=== PATIENT | male | born 1970 | race Caucasian/White ===

== ENCOUNTER 2021-09-18 11:45 | Inpatient (IN) | payer MEDICAID, OTHER ==
--- NOTE | 2021-09-18 12:14 | ED ---
General Adult HPI - General Chief complaint: Neuro Symptoms/Deficit Stated complaint: confusion, facial drooping Time Seen by Provider: 09/18/21 11:54 Source: patient, EMS, RN notes reviewed Mode of arrival: EMS Limitations: no limitations - History of Present Illness Initial comments: Patient is a pleasant 50-year-old male presenting to the emergency department with concerns for episode of confusion and facial droop. Patient states he woke up this morning and was confused. He states symptoms lasted around an hour and have resolved. Patient feels normal at this time and has no complaints. Patient comes from [place]. Report states patient did have some confusion yesterday that resolved and then again today. Patient also reportedly had a facial droop. Patient is unaware of any facial droop or problems with his face. Patient denies any extremity weakness. Patient denies any confusion at this time. Patient denies any history of previous arrhythmia or heart problems. Patient is at [facility] for benzodiazepine problems. - Related Data Home Medications Medication Instructions Recorded Confirmed Acetaminophen [Tylenol 8 Hour] 650 mg PO Q4H PRN MDD 3 TAB/24 HR 09/18/21 09/18/21 Calc/Mag/Zinc/Janny D 1 tab PO TID PRN 09/18/21 09/18/21 Chlorpheniramine Maleate 4 mg PO Q4H PRN 09/18/21 09/18/21 [Chlor-Trimeton] Digoxin 250 mcg PO DAILY 09/18/21 09/18/21 Folic Acid 0.4 mg PO DAILY 09/18/21 09/18/21 Furosemide [Lasix] 40 mg PO DAILY 09/18/21 09/18/21 Hyoscyamine Sulfate [Levsin] 0.125 mg PO QID PRN 09/18/21 09/18/21 Ibuprofen [Motrin Ib] 600 mg PO Q6H PRN 09/18/21 09/18/21 Loperamide HCl [Imodium A-D] 4 mg PO QID PRN MDD 8 TAB/24 HRS 09/18/21 09/18/21 Losartan Potassium [Cozaar] 25 mg PO DAILY 09/18/21 09/18/21 Mag Hydrox/Aluminum Hyd/Simeth 30 ml PO Q4H PRN 09/18/21 09/18/21 [Mylanta Maximum Strength Liq] Metoprolol Tartrate [Lopressor] 75 mg PO TID 09/18/21 09/18/21 Spironolactone 100 mg PO DAILY 09/18/21 09/18/21 Therabasic M 1 tab PO DAILY 09/18/21 09/18/21 Thiamine HCl [Vitamin B-1] 100 mg PO DAILY 09/18/21 09/18/21 cloNIDine HCL 0.1 mg PO BID 09/18/21 09/18/21 ondansetron HCL [Zofran] 8 mg PO Q6H PRN 09/18/21 09/18/21 traZODone HCL [Desyrel] 50 - 150 mg PO HS PRN 09/18/21 09/18/21 Allergies Allergy/AdvReac Type Severity Reaction Status Date / Time No Known Allergies Allergy Verified 09/18/21 13:07 Review of Systems ROS Statement: Those systems with pertinent positive or pertinent negative responses have been documented in the HPI. ROS Other: All systems not noted in ROS Statement are negative. Constitutional: Denies: fever Eyes: Denies: eye pain ENT: Denies: ear pain Respiratory: Denies: cough Cardiovascular: Denies: chest pain Endocrine: Denies: fatigue Gastrointestinal: Denies: abdominal pain Genitourinary: Denies: dysuria Musculoskeletal: Denies: back pain Skin: Denies: rash Neurological: Reports: as per HPI, weakness, confusion. Denies: headache Past Medical History Past Medical History: No Reported History Additional Past Medical History / Comment(s): Patient denies any pain issues. History of Any Multi-Drug Resistant Organisms: None Reported Past Surgical History: Orthopedic Surgery Additional Past Surgical History / Comment(s): finger repair Past Anesthesia/Blood Transfusion Reactions: No Reported Reaction Additional Past Anesthesia/Blood Transfusion Reaction / Comment(s): Patient denies. Past Psychological History: No Psychological Hx Reported Past Alcohol Use History: None Reported Past Drug Use History: Cocaine, Opiates, Prescription Drug Abuse General Exam Limitations: no limitations General appearance: alert, in no apparent distress Head exam: Present: normocephalic Eye exam: Present: normal appearance, PERRL, EOMI. Absent: nystagmus ENT exam: Present: normal oropharynx Neck exam: Present: normal inspection Respiratory exam: Present: normal lung sounds bilaterally Cardiovascular Exam: Present: irregular rhythm GI/Abdominal exam: Present: soft. Absent: tenderness Extremities exam: Present: normal inspection Neurological exam: Present: alert, oriented X3, CN II-XII intact. Absent: motor sensory deficit Expanded Neurological exam: Present: protecting the airway Patient oriented to: Present: person, place, time Speech: Present: fluid speech Cranial nerves: EOM's Intact: Normal, Facial Sensation: Normal Sensory exam: Upper Extremity Light Touch: Normal, Lower Extremity Light Touch: Normal Motor strength exam: RUE: 5, LUE: 5, RLE: 5, LLE: 5 Eye Response: (4) open spontaneously Motor Response: (6) obeys commands Verbal Response: (5) oriented Psychiatric exam: Present: normal affect, normal mood Skin exam: Present: normal color Course Vital Signs 09/18/21 09/18/21 11:51 13:08 Temperature 98.4 F Pulse Rate 78 103 H Respiratory 18 18 Rate Blood Pressure 189/128 182/115 O2 Sat by Pulse 99 98 Oximetry - Reevaluation(s) Reevaluation #1: 09/18/21 13:26 Heparin will be held at this time pending cardiology evaluation secondary to INR 1.5 and low platelet count. EKG Findings - EKG Comments: EKG Findings:: A. fib with rate of 87. QRS 96. QT 404. QTC 486. Normal axis. Normal QRS. T wave inversion diffusely. Medical Decision Making - Medical Decision Making Patient reevaluated and updated. [facility] physician group has been paged for admission covering for hospital call. - Lab Data Result diagrams: 09/18/21 12:07 09/18/21 12:07 Lab Results 09/18/21 09/18/21 09/18/21 Range/Units 12:07 12:07 12:07 WBC 4.0 (3.8-10.6) k/uL RBC 5.58 (4.30-5.90) m/uL Hgb 17.5 (13.0-17.5) gm/dL Hct 51.1 (39.0-53.0) % MCV 91.5 (80.0-100.0) fL MCH 31.3 (25.0-35.0) pg MCHC 34.2 (31.0-37.0) g/dL RDW 14.2 (11.5-15.5) % Plt Count 89 L (150-450) k/uL MPV 8.7 Neutrophils % 74 % Lymphocytes % 15 % Monocytes % 9 % Eosinophils % 0 % Basophils % 0 % Neutrophils # 3.0 (1.3-7.7) k/uL Lymphocytes # 0.6 L (1.0-4.8) k/uL Monocytes # 0.4 (0-1.0) k/uL Eosinophils # 0.0 (0-0.7) k/uL Basophils # 0.0 (0-0.2) k/uL Manual Slide Review Performed RBC Morphology Normal PT 15.3 H (9.0-12.0) sec INR 1.5 H (<1.2) APTT 32.8 H (22.0-30.0) sec Sodium 136 L (137-145) mmol/L Potassium 3.9 (3.5-5.1) mmol/L Chloride 102 (98-107) mmol/L Carbon Dioxide 21 L (22-30) mmol/L Anion Gap 13 mmol/L BUN 24 H (9-20) mg/dL Creatinine 0.71 (0.66-1.25) mg/dL Est GFR (CKD-EPI)AfAm >90 (>60 ml/min/1.73 sqM) Est GFR (CKD-EPI)NonAf >90 (>60 ml/min/1.73 sqM) Glucose 147 H (74-99) mg/dL Calcium 9.0 (8.4-10.2) mg/dL Total Bilirubin 1.9 H (0.2-1.3) mg/dL AST 68 H (17-59) U/L ALT 29 (4-49) U/L Alkaline Phosphatase 79 (38-126) U/L Troponin I (0.000-0.034) ng/mL Total Protein 7.8 (6.3-8.2) g/dL Albumin 4.3 (3.5-5.0) g/dL 09/18/21 Range/Units 12:07 WBC (3.8-10.6) k/uL RBC (4.30-5.90) m/uL Hgb (13.0-17.5) gm/dL Hct (39.0-53.0) % MCV (80.0-100.0) fL MCH (25.0-35.0) pg MCHC (31.0-37.0) g/dL RDW (11.5-15.5) % Plt Count (150-450) k/uL MPV Neutrophils % % Lymphocytes % % Monocytes % % Eosinophils % % Basophils % % Neutrophils # (1.3-7.7) k/uL Lymphocytes # (1.0-4.8) k/uL Monocytes # (0-1.0) k/uL Eosinophils # (0-0.7) k/uL Basophils # (0-0.2) k/uL Manual Slide Review RBC Morphology PT (9.0-12.0) sec INR (<1.2) APTT (22.0-30.0) sec Sodium (137-145) mmol/L Potassium (3.5-5.1) mmol/L Chloride (98-107) mmol/L Carbon Dioxide (22-30) mmol/L Anion Gap mmol/L BUN (9-20) mg/dL Creatinine (0.66-1.25) mg/dL Est GFR (CKD-EPI)AfAm (>60 ml/min/1.73 sqM) Est GFR (CKD-EPI)NonAf (>60 ml/min/1.73 sqM) Glucose (74-99) mg/dL Calcium (8.4-10.2) mg/dL Total Bilirubin (0.2-1.3) mg/dL AST (17-59) U/L ALT (4-49) U/L Alkaline Phosphatase (38-126) U/L Troponin I 0.015 (0.000-0.034) ng/mL Total Protein (6.3-8.2) g/dL Albumin (3.5-5.0) g/dL - Radiology Data Radiology results: report reviewed (CT and CT of the brain shows no acute process), image reviewed (Chest x-ray shows no acute process) Disposition Clinical Impression: Transient cerebral ischemia, New onset a-fib Disposition: ADMITTED IP TO THIS [facility] Condition: Serious Is patient prescribed a controlled substance at d/c from ED?: No Referrals: None,Stated [Primary Care Provider] - 1-2 days Decision Time: 13:26
[2021-09-18 12:19] LABS: Basophils % (A) 0 %; Eosinophils % (A) 0 %; HCT 51.1 % (39.0-53.0); HGB 17.5 gm/dL (13.0-17.5); Lymphocytes # (A) 0.6 k/uL (1.0-4.8); Lymphocytes % (A) 15 %; MCH 31.3 pg (25.0-35.0); MCHC 34.2 g/dL (31.0-37.0); MCV 91.5 fL (80.0-100.0); Mean Platelet Volume 8.7; Monocytes # (A) 0.4 k/uL (0-1.0); Monocytes % (A) 9 %; Neutrophils % (A) 74 %; RBC 5.58 m/uL (4.30-5.90); RDW 14.2 % (11.5-15.5)
[2021-09-18 12:24] LABS: INR 1.5 (<1.2); Partial Thromboplastin Time 32.8 sec (22.0-30.0); Prothrombin Time 15.3 sec (9.0-12.0)
[2021-09-18 12:25] LABS: ALT 29 U/L (4-49); AST 68 U/L (17-59); African American GFR (CKD) >90 (>60 ml/min/1.73 sqM); Albumin 4.3 g/dL (3.5-5.0); Alkaline Phosphatase 79 U/L (38-126); Anion Gap 13 mmol/L; Blood Urea Nitrogen 24 mg/dL (9-20); Carbon Dioxide 21 mmol/L (22-30); Chloride 102 mmol/L (98-107); Glucose 147 mg/dL (74-99); Non-African American GFR(CKD) >90 (>60 ml/min/1.73 sqM); Sodium 136 mmol/L (137-145); Total Bilirubin 1.9 mg/dL (0.2-1.3); Total Protein 7.8 g/dL (6.3-8.2)
[2021-09-18 12:26] LABS: Potassium 3.9 mmol/L (3.5-5.1)
--- NOTE | 2021-09-18 12:30 | CT ---
EXAMINATION TYPE: CT brain wo con DATE OF EXAM: 09/18/2021 HISTORY: Confusion. CT DLP: 1094.8 mGycm. Automated Exposure Control for Dose Reduction was Utilized. TECHNIQUE: CT scan of the head is performed without contrast. COMPARISON: None. FINDINGS: There is no acute intracranial hemorrhage or midline shift identified. There is mild to m oderate diffuse ventricular and slightly more prominent sulcal prominence consistent with diffuse cer ebral atrophy greatest over the bilateral high frontal and parietal lobes. Hawley-white matter differen tiation fairly well maintained. Old fracture deformities medial wall of the bilateral orbits. Paranas al sinuses are grossly clear. IMPRESSION: No acute intracranial hemorrhage or midline shift.
--- NOTE | 2021-09-18 12:31 | XR ---
EXAMINATION TYPE: XR chest 2V DATE OF EXAM: 09/18/2021 COMPARISON: NONE HISTORY: Altered mental status and weakness. TECHNIQUE: Frontal and lateral views of the chest are obtained. FINDINGS: Patient rotated to the right. There is no focal air space opacity, pleural effusion, or pne umothorax seen. The cardiac silhouette size is mildly enlarged. The osseous structures are intact. Overlying EKG leads are present. IMPRESSION: Mild cardiomegaly without acute pulmonary process.
[2021-09-18 12:38] LABS: Platelet Count 89 k/uL (150-450)
--- NOTE | 2021-09-18 12:47 | CT ---
EXAMINATION TYPE: CT angio head neck DATE OF EXAM: 09/18/2021 HISTORY: Confusion. Acute onset neuro deficit. COMPARISON: None. CT DLP: 487.1 mGycm. Automated Exposure Control for Dose Reduction was Utilized. TECHNIQUE: CTA scan of the neck is performed with IV Contrast, patient injected with 65 mL of Isovue 370, axial images are obtained, coronal and sagittal reformatted images are reviewed. 3D reconstruct ed images are created on an independent workstation and reviewed. FINDINGS: Carotid/Vascular Structures: No significant plaque or stenosis in the aortic arch or great vessels. N ormal origin right common carotid artery from the right brachiocephalic artery. No significant plaque or stenosis in the common or internal carotid arteries bilaterally including at level of the bilater al carotid bulbs. Patent external carotid arteries bilaterally without significant plaque or stenosis . Codominant vertebral arteries filling the basilar artery are identified. There is no significant foca l stenosis or aneurysm in the posterior circulation. There is patent right posterior communicating ar danika. There is hypoplastic left posterior communicating artery. There is patent anterior communicating artery. There is no significant focal stenosis or aneurysm in the anterior circulation. Other: No significant abnormality. IMPRESSION: No significant abnormality is seen. NASCET criteria was used in interpretation of this exam?
[2021-09-18] MEDS ORDERED: ASPIRIN 325 MG TAB PO STA (13:26)
[2021-09-18 13:40] LABS: Appearance,Urine Clear (Clear); Bilirubin,Urine Negative (Negative); Blood,Urine Negative (Negative); Color,Urine Yellow; Glucose,Urine (UA) Negative (Negative); Ketones,Urine Negative (Negative); Leukocyte Esterase,Urine Negative (Negative); Mucus,Urine Rare /hpf; Nitrite,Urine Negative (Negative); Protein,Urine 1+ (Negative); RBC,Urine 1 /hpf (0-5); Squamous Epithelial Cell,Urine <1 /hpf (0-4); Urobilinogen,Urine <2.0 mg/dL (<2.0); WBC,Urine 1 /hpf (0-5)
[2021-09-18 13:43] LABS: Specific Gravity,Urine >1.050 (1.001-1.035)
[2021-09-18] MEDS ORDERED: LORazepam 2 MG/ML INJ IV STA (13:54)
[2021-09-18] MEDS ORDERED: ONDANSETRON 4 MG TAB PO PRN (14:31)
[2021-09-18] MEDS ORDERED: IBUPROFEN 600 MG TAB PO PRN (14:31)
[2021-09-18] MEDS ORDERED: traZODone HCL 50 MG TAB PO PRN (14:31)
[2021-09-18] MEDS ORDERED: MAG HYDROX/AL HYDROX/SIMETH 30 ML CUP PO PRN (14:31)
[2021-09-18] MEDS ORDERED: diphenhydrAMINE 25 MG CAP PO PRN (14:31)
[2021-09-18] MEDS ORDERED: ACETAMINOPHEN TAB 325 MG TAB PO PRN (14:31)
[2021-09-18] MEDS ORDERED: HALOPERIDOL LACTATE 5 MG/ML 1 ML VIAL IVP PRN (14:33)
--- NOTE | 2021-09-18 14:35 | P.HPIM ---
History of Present Illness H&P Date: 09/18/21 Chief Complaint: TIA 50-year-old male presenting to the emergency department from [place] with concerns for episode of confusion and facial droop. Patient states he woke up this morning and was confused. According to [place] staff he had some facial drooping. He is still confused and agitated at the time of my evaluation. Earlier he stated that he was feeling normal and had no complaints. However when I saw him he was having some hallucinations and delusions, was agitated. Did not cooperate with the history or the exam. Vital signs in the emergency department revealed hypertension with blood pressure 185/115, tachycardia with heart rate of 120 to 130. Rest of the vitals were okay. Chest x-ray showed cardiomegaly. EKG showed atrial fibrillation with rapid ventricular response. Head CT scan and CT angiogram of the head and neck were both unremarkable. Review of Systems Unobtainable secondary to current mental status Past Medical History Past Medical History: No Reported History Additional Past Medical History / Comment(s): Patient denies any pain issues. History of Any Multi-Drug Resistant Organisms: None Reported Past Surgical History: Orthopedic Surgery Additional Past Surgical History / Comment(s): finger repair Past Anesthesia/Blood Transfusion Reactions: No Reported Reaction Additional Past Anesthesia/Blood Transfusion Reaction / Comment(s): Patient denies. Past Psychological History: No Psychological Hx Reported Past Alcohol Use History: None Reported Past Drug Use History: Cocaine, Opiates, Prescription Drug Abuse Medications and Allergies Home Medications Medication Instructions Recorded Confirmed Type Acetaminophen [Tylenol 8 Hour] 650 mg PO Q4H PRN MDD 3 TAB/24 HR 09/18/2105/02 History Calc/Mag/Zinc/Janny D 1 tab PO TID PRN 09/18/21 09/18/21 History Chlorpheniramine Maleate 4 mg PO Q4H PRN 09/18/21 09/18/21 History [Chlor-Trimeton] Digoxin 250 mcg PO DAILY 09/18/21 09/18/21 History Folic Acid 0.4 mg PO DAILY 09/18/21 09/18/21 History Furosemide [Lasix] 40 mg PO DAILY 09/18/21 09/18/21 History Hyoscyamine Sulfate [Levsin] 0.125 mg PO QID PRN 09/18/21 09/18/21 History Ibuprofen [Motrin Ib] 600 mg PO Q6H PRN 09/18/21 09/18/21 History Loperamide HCl [Imodium A-D] 4 mg PO QID PRN MDD 8 TAB/24 HRS 09/18/21 09/18/21 History Losartan Potassium [Cozaar] 25 mg PO DAILY 09/18/21 09/18/21 History Mag Hydrox/Aluminum Hyd/Simeth 30 ml PO Q4H PRN 09/18/21 09/18/21 History [Mylanta Maximum Strength Liq] Metoprolol Tartrate [Lopressor] 75 mg PO TID 09/18/21 09/18/21 History Spironolactone 100 mg PO DAILY 09/18/21 09/18/21 History Therabasic M 1 tab PO DAILY 09/18/21 09/18/21 History Thiamine HCl [Vitamin B-1] 100 mg PO DAILY 09/18/21 09/18/21 History cloNIDine HCL 0.1 mg PO BID 09/18/21 09/18/21 History ondansetron HCL [Zofran] 8 mg PO Q6H PRN 09/18/21 09/18/21 History traZODone HCL [Desyrel] 50 - 150 mg PO HS PRN 09/18/21 09/18/21 History Allergies Allergy/AdvReac Type Severity Reaction Status Date / Time No Known Allergies Allergy Verified 09/18/21 13:07 Physical Exam Vitals: Vital Signs Temp Pulse Resp BP Pulse Ox 09/18/21 13:08 103 H 18 182/115 98 09/18/21 11:51 98.4 F 78 18 189/128 99 Intake and Output 09/17/21 09/18/21 09/18/21 22:59 06:59 14:59 Other: Weight 117.934 kg Constitutional: No acute distress Eyes:Anicteric sclerae, moist conjunctiva, no lid-lag, PERRLA, ENMT: Oropharynx clear, no erythema, exudates Neck: Supple, FROM, no masses, or JVD, No carotid bruits, No thyromegaly Lungs: Clear to auscultation, Clear to percussion, Normal respiratory effort, no accessory muscle use Cardiovascular: tachy, irregular. No murmurs, gallops, or rubs, No peripheral edema Abdominal: Soft, Nontender, no guarding, rebound or rigidity, Normoactive bowel sounds, No hepatomegaly, No splenomegaly, No palpable mass Skin: Normal temperature, tone, texture, turgor, no induration, No subcutaneous nodules, No rash, lesions, No ulcers Extremities: No digital cyanosis, No clubbing, Pedal pulses intact and symmetrical, Radial pulses intact and symmetrical, No calf tenderness Psychiatric: Alert and oriented time zero, flat affect, impaired judgement Neuro: moving all extremities, agitated Results CBC & Chem 7: 09/18/21 12:07 09/18/21 12:07 Labs: Abnormal Lab Results - Last 24 Hours (Table) 09/18/21 09/18/21 09/18/21 Range/Units 12:07 12:07 12:07 Plt Count 89 L (150-450) k/uL Lymphocytes # 0.6 L (1.0-4.8) k/uL PT 15.3 H (9.0-12.0) sec INR 1.5 H (<1.2) APTT 32.8 H (22.0-30.0) sec Sodium 136 L (137-145) mmol/L Carbon Dioxide 21 L (22-30) mmol/L BUN 24 H (9-20) mg/dL Glucose 147 H (74-99) mg/dL Total Bilirubin 1.9 H (0.2-1.3) mg/dL AST 68 H (17-59) U/L Ur Specific [place] (1.001-1.035) Urine Protein (Negative) Urine Mucus (None) /hpf Coronavirus (PCR) (Not Detectd) 09/18/21 09/18/21 Range/Units 13:16 13:47 Plt Count (150-450) k/uL Lymphocytes # (1.0-4.8) k/uL PT (9.0-12.0) sec INR (<1.2) APTT (22.0-30.0) sec Sodium (137-145) mmol/L Carbon Dioxide (22-30) mmol/L BUN (9-20) mg/dL Glucose (74-99) mg/dL Total Bilirubin (0.2-1.3) mg/dL AST (17-59) U/L Ur Specific [place] >1.050 H (1.001-1.035) Urine Protein 1+ H (Negative) Urine Mucus Rare H (None) /hpf Coronavirus (PCR) Detected A (Not Detectd) Assessment and Plan Plan: TIA Consult neurology for further workup. CT head and CT angiogram of the head and neck reviewed, both negative Atrial fibrillation with rapid ventricular response Consult cardiology We will initiate Cardizem drip if heart rate above 100 Anticoagulation per cardiology Delusions and hallucinations. Consult psychiatry Resume his psych medications Halodol prn for agitation HTN Continue losrtan, metoprolol and clonidine. Admit to inpatient, expected length of stay more than 2 midnights
[2021-09-18] MEDS: DILTIAZEM 125 MG in SODIUM CHLORIDE 0.9% 100 ML IV SCH (15:35)
[2021-09-18 17:06] LABS: Amphetamine Screen,Urine Not Detected (NotDetected); Barbiturate Screen,Urine Detected (NotDetected); Benzodiazepines Screen,Urine Detected (NotDetected); Cocaine Screen,Urine Not Detected (NotDetected); Methadone Screen, Urine Detected (NotDetected); Opiate Screen,Urine Not Detected (NotDetected); Oxycodone Screen, Urine Not Detected (NotDetected); Phencyclidine Screen,Urine Not Detected (NotDetected); Tricyclic Antidepressant,Urine Not Detected (NotDetected); Urn Cannabinoid Scrn Not Detected (NotDetected)
[2021-09-18] MEDS: SODIUM CHLORIDE 0.9% 1,000 ML IV SCH (18:59)
[2021-09-18] MEDS: METOPROLOL TARTRATE 50 MG TAB PO SCH ×2 (19:01→21:57)
[2021-09-18] MEDS: cloNIDine HCL 0.1 MG TAB PO SCH (19:01)
[2021-09-19 00:03] LABS: Urine Alcohol Negative (Negative); Urine Barbiturate Positive (Negative); Urine Cocaine Negative (Negative); Urine Methadone Positive (Negative); Urine Opiates Negative (Negative); Urine Phencyclidine Negative (Negative)
[2021-09-19] MEDS: SODIUM CHLORIDE 0.9% 1,000 ML IV SCH ×2 (00:31→09:26)
[2021-09-19] MEDS: DILTIAZEM 125 MG in SODIUM CHLORIDE 0.9% 100 ML IV SCH (06:13)
[2021-09-19] MEDS: SPIRONOLACTONE 25 MG TAB PO SCH (09:23)
[2021-09-19] MEDS: ASPIRIN 325 MG TAB PO SCH (09:23)
[2021-09-19] MEDS: LOSARTAN 25 MG TAB PO SCH (09:23)
[2021-09-19] MEDS: cloNIDine HCL 0.1 MG TAB PO SCH ×2 (09:23→17:56)
[2021-09-19] MEDS: FUROSEMIDE 40 MG TAB PO SCH (09:23)
[2021-09-19] MEDS: METOPROLOL TARTRATE 50 MG TAB PO SCH ×3 (09:23→21:34)
[2021-09-19] MEDS: DIGOXIN 250 MCG TAB PO SCH (09:24)
--- NOTE | 2021-09-19 10:53 | P.CN ---
Psychiatric Consult - . Consult date: 09/19/21 Consult:: 09/19/21 10:44 Psychiatric evaluation: This is a psychiatric assessment on Delfino Harper who is a 50-year-old male and was requested for a evaluation for mental status changes Patient is a very poor historian and seemed to be very defensive and projective and delusional Patient was very guarded Patient was unable to give me the reasons for him being in the hospital Patient also stated that this might be a conspiracy against him by some of his friends Patient did not report any issues as mentioned in the H&P where he had initially presented with episodes of confusion and facial droop Patient currently denies that he has any history of any mental illness or substance use Although there is documentation of past drug use of cocaine and opiates and prescription drug use Patient also seemed to have significant difficulty with concentration and attention span Patient also has problems with easy irritability and temperament Past history personal and social history: The patient continues to have difficulty with concentration and attention span Patient seems to pick on words among the questions asked and seemed to get easily irritated He was able to report that he is a hassan and he lives alone Patient also feels that this is a conspiracy by some of his friends but would not elaborate when asked about his friends patient got extremely irritated wondering what I was asking and had no idea what he had responded earlier Mental status examination: Reveals a middle-aged male who appears confused and perplexed Patient's affect is that of irritability with easy escalation of temperament Patient's insight into his problem is poor Unable to assess if patient has any auditory or visual hallucinations Patient's formal and operational judgment are impaired Problem-solving abilities impaired Judgment is poor Diagnostic impression: Psychotic disorder unspecified Rule out major neurocognitive disorder/delirium Rule out substance related? Plan: Would recommend starting the patient on a small dose of antipsychotic in addition to the when necessary medications Would recommend starting him on Haldol 1 mg twice a day and to be titrated to response if there are no side effects We'll follow this patient along with you Thank you very much for allowing me to see this patient and please feel free to contact me if there are any further questions Joseph Rose M.D. 09/19/2021
--- NOTE | 2021-09-19 10:58 | P.CRDCN ---
History of Present Illness Consult date: 09/19/21 Consult reason: atrial fibrillation History of present illness: HISTORY OF PRESENT ILLNESS This is a 50-year-old male with past medical history of hypertension. Patient denies having any cardiac history, A. fib, heart failure. [facility]. Patient was having episodes of confusion and facial droop. Patient denies symptoms of confusion and facial droop. He does not know why he is at the hospital. Patient just states don't remember to questions, sophie judd historian. EKG atrial fibrillation at a heart rate of 87. jacquard card cutter is atrial fibrillation running in the 60s and 70s. Laboratory studies: Platelet count 89, INR 1.5. Sodium 136, potassium 3.9, CO2 21, BUN 24 creatinine 0.71. Blood sugar 147. Total bilirubin 1.9, AST 68. Urinalysis was clear with nitrate and leukoesterase negative, 1+ protein. Urine drug screen was positive for methadone, barbiturates and repeat drug screen was positive for benzodiazepines. Carona virus PCR detected. CT angiogram of the head and neck revealed no significant abnormality. CAT scan of the brain revealed no acute intracranial hemorrhage or midline shift. Chest x-ray reveals mild cardiomegaly without acute pulmonary process. Home cardiac medications: Clonidine 0.1 mg twice daily, digoxin 250 g daily, Lasix 40 mg daily, losartan 25 mg daily, Lopressor 75 mg 3 times daily, spironolactone 100 mg daily REVIEW OF SYSTEMS Constitutional: No fever, no chills. No weakness, fatigue or lethargy. EENT: No headache. No dizziness. Lungs: No shortness of breath, cough, no sputum production. No wheezing. Cardiovascular: No chest pain, no lower extremity edema. No palpitations. No paroxysmal nocturnal dyspnea. No orthopnea. No lightheadedness or dizziness. No syncopal episodes. Abdominal: No abdominal pain. No nausea, vomiting. No diarrhea. No constipation. No bloody or tarry stools.. No loss of appetite. Genitourinary: No dysuria.. No urinary retention. Musculoskeletal: No myalgias. No muscle weakness, no gait dysfunction, no frequent falls. No back pain. No neck pain. Integumentary: No wounds, no lesions. No rash or pruritus. No unusual bruising. Neurologic: No aphasia. No facial droop. No change in mentation. No head injury. No headache. No paralysis. No paresthesia. Psychiatric: No depression. No anxiety. Endocrine: No abnormal blood sugars. PHYSICAL EXAMINATION Gen: This is a 50-year-old male patient, resting in bed and appears to be comfortable and in no acute distress. VS: Afebrile, heart rate 94, blood pressure 179/108, pulse ox 98% on room air Full physical examination deferred due to Covid 19 isolation ASSESSMENT Atrial fibrillation, mild RVR, currently rate controlled Possible new onset of paroxysmal atrial fibrillation. However patient may have history of A. fib and cardiomyopathy based on medications. Episodes of confusion and facial droop Thrombocytopenia Hypertension Benzodiazepine substance abuse PLAN Continue patient's home cardiac medications Neurology workup per her neurologist If patient is thought to have CVA, recommend anticoagulation Obtain 2-D echocardiogram and Doppler study to assess cardiac structure and fu nction Further recommendations to follow based upon clinical course Thank you kindly for this consultation. Nurse practitioner note has been reviewed, I agree with documented findings and plan of care. Patient was seen and examined. Past Medical History Past Medical History: No Reported History Additional Past Medical History / Comment(s): Patient denies any pain issues. History of Any Multi-Drug Resistant Organisms: None Reported Past Surgical History: Orthopedic Surgery Additional Past Surgical History / Comment(s): finger repair Past Anesthesia/Blood Transfusion Reactions: No Reported Reaction Additional Past Anesthesia/Blood Transfusion Reaction / Comment(s): Patient denies. Past Psychological History: No Psychological Hx Reported Additional Psychological History / Comment(s): Patient currently receiving substatnce abuse treatmrent at [place]. Smoking Status: Unknown if ever smoked Past Alcohol Use History: None Reported Additional Past Alcohol Use History / Comment(s): Denies. Past Drug Use History: Cocaine, Opiates, Prescription Drug Abuse Medications and Allergies Home Medications Medication Instructions Recorded Confirmed Type Acetaminophen [Tylenol 8 Hour] 650 mg PO Q4H PRN MDD 3 TAB/24 HR 09/18/21 09/18/21 History Calc/Mag/Zinc/Janny D 1 tab PO TID PRN 09/18/21 09/18/21 History Chlorpheniramine Maleate 4 mg PO Q4H PRN 09/18/21 09/18/21 History [Chlor-Trimeton] Digoxin 250 mcg PO DAILY 09/18/21 09/18/21 History Folic Acid 0.4 mg PO DAILY 09/18/21 09/18/21 History Furosemide [Lasix] 40 mg PO DAILY 09/18/21 09/18/21 History Hyoscyamine Sulfate [Levsin] 0.125 mg PO QID PRN 09/18/21 09/18/21 History Ibuprofen [Motrin Ib] 600 mg PO Q6H PRN 09/18/21 09/18/21 History Loperamide HCl [Imodium A-D] 4 mg PO QID PRN MDD 8 TAB/24 HRS 09/18/21 09/18/21 History Losartan Potassium [Cozaar] 25 mg PO DAILY 09/18/21 09/18/21 History Mag Hydrox/Aluminum Hyd/Simeth 30 ml PO Q4H PRN 09/18/21 09/18/21 History [Mylanta Maximum Strength Liq] Metoprolol Tartrate [Lopressor] 75 mg PO TID 09/18/21 09/18/21 History Spironolactone 100 mg PO DAILY 09/18/21 09/18/21 History Therabasic M 1 tab PO DAILY 09/18/21 09/18/21 History Thiamine HCl [Vitamin B-1] 100 mg PO DAILY 09/18/21 09/18/21 History cloNIDine HCL 0.1 mg PO BID 09/18/21 09/18/21 History ondansetron HCL [Zofran] 8 mg PO Q6H PRN 09/18/21 09/18/21 History traZODone HCL [Desyrel] 50 - 150 mg PO HS PRN 09/18/21 09/18/21 History Allergies Allergy/AdvReac Type Severity Reaction Status Date / Time No Known Allergies Allergy Verified 09/18/21 13:07 Physical Exam Vitals: Vital Signs Temp Pulse Pulse Resp BP BP Pulse Ox 09/19/21 04:28 98.9 F 67 18 167/97 98 09/19/21 04:00 98.9 F 67 18 167/97 98 09/19/21 02:00 65 18 09/19/21 00:00 98.5 F 65 18 165/99 99 09/18/21 22:28 98.5 F 65 18 165/99 97 09/18/21 20:28 99.3 F 62 18 173/102 97 09/18/21 20:00 99.3 F 62 18 173/102 97 09/18/21 18:46 97.6 F 116 H 18 217/124 96 09/18/21 16:32 183/126 09/18/21 15:00 104 H 16 194/149 09/18/21 14:40 108 H 20 194/149 09/18/21 14:20 134 H 19 09/18/21 14:00 83 30 H 09/18/21 13:40 100 24 191/130 09/18/21 13:20 182/115 09/18/21 13:08 103 H 18 182/115 98 09/18/21 13:00 120 H 21 179/161 09/18/21 12:40 116 H 21 194/122 99 09/18/21 12:20 191/141 09/18/21 12:00 76 29 H 189/128 09/18/21 11:51 98.4 F 78 18 189/128 99 09/18/21 11:50 85 18 Intake and Output 09/18/21 09/19/21 09/19/21 22:59 06:59 14:59 Intake Total 400 975 Balance 400 975 Intake: IV 10 Invasive Line 1 10 Intake, IV Titration 330 875 Amount Diltiazem 125 mg In 30 125 Sodium Chloride 0.9% 100 ml @ 10 MG/HR 10 mls/hr IV .[id number] DAVIN Rx#: [id number] Sodium Chloride 0.9% 1, 300 750 000 ml @ 100 mls/hr IV . Q10H DAVIN Rx#:[id number] Oral 60 100 Other: # Voids 1 4 Weight 117.934 kg Results 09/18/21 12:07 09/18/21 12:07 Cardiac Enzymes 09/18/21 09/18/21 Range/Units 12:07 12:07 AST 68 H (17-59) U/L Troponin I 0.015 (0.000-0.034) ng/mL Coagulation 09/18/21 Range/Units 12:07 PT 15.3 H (9.0-12.0) sec APTT 32.8 H (22.0-30.0) sec CBC 09/18/21 Range/Units 12:07 WBC 4.0 (3.8-10.6) k/uL RBC 5.58 (4.30-5.90) m/uL Hgb 17.5 (13.0-17.5) gm/dL Hct 51.1 (39.0-53.0) % Plt Count 89 L (150-450) k/uL Comprehensive Metabolic Panel 09/18/21 Range/Units 12:07 Sodium 136 L (137-145) mmol/L Potassium 3.9 (3.5-5.1) mmol/L Chloride 102 (98-107) mmol/L Carbon Dioxide 21 L (22-30) mmol/L BUN 24 H (9-20) mg/dL Creatinine 0.71 (0.66-1.25) mg/dL Glucose 147 H (74-99) mg/dL Calcium 9.0 (8.4-10.2) mg/dL AST 68 H (17-59) U/L ALT 29 (4-49) U/L Alkaline Phosphatase 79 (38-126) U/L Total Protein 7.8 (6.3-8.2) g/dL Albumin 4.3 (3.5-5.0) g/dL Current Medications Generic Name Dose Route Start Last Admin Trade Name Freq PRN Reason Stop Dose Admin Acetaminophen 650 mg 09/18/21 14:31 Acetaminophen Tab 325 Mg Tab PO Q4H PRN Fever and/ or Pain Al Hydroxide/Mg Hydroxide 30 ml 09/18/21 14:31 Mag Hydrox/Al Hydrox/Simeth 30 Ml Cup PO Q4H PRN GI Upset Aspirin 325 mg 09/19/21 09:00 Aspirin 325 Mg Tab PO DAILY DAVIN Clonidine 0.1 mg 09/18/21 21:00 09/18/21 19:01 Clonidine Hcl 0.1 Mg Tab PO 0.1 mg BID DAVIN Administration Digoxin 250 mcg 09/19/21 09:00 Digoxin 250 Mcg Tab PO DAILY DAVIN Diphenhydramine HCl 25 mg 09/18/21 14:31 Diphenhydramine 25 Mg Cap PO Q4H PRN Allergy Symptoms Furosemide 40 mg 09/19/21 09:00 Furosemide 40 Mg Tab PO DAILY DAVIN Haloperidol Lactate 2 mg 09/18/21 14:33 Haloperidol Lactate 5 Mg/Ml 1 Ml Vial IVP Q8HR PRN Agitation or Acute Psychosis Sodium Chloride 1,000 mls @ 100 mls/hr 09/18/21 13:30 09/19/21 00:31 Saline 0.9% IV Not Given .Q10H DAVIN Diltiazem HCl 125 mg/ Sodium 125 mls @ 10 mls/hr 09/18/21 14:45 09/19/21 06:1 3 Chloride IV Not Given .[id number] DAVIN 10 MG/HR Ibuprofen 600 mg 09/18/21 14:31 Ibuprofen 600 Mg Tab PO Q6H PRN Pain Losartan Potassium 25 mg 09/19/21 09:00 Losartan 25 Mg Tab PO DAILY DAVIN Metoprolol Tartrate 75 mg 09/18/21 16:00 09/18/21 21:57 Metoprolol Tartrate 50 Mg Tab PO 75 mg TID DAVIN Administration Ondansetron HCl 8 mg 09/18/21 14:31 Ondansetron 4 Mg Tab PO Q6H PRN Nausea And Vomiting Spironolactone 100 mg 09/19/21 09:00 Spironolactone 25 Mg Tab PO DAILY DAVIN Trazodone HCl 50 mg 09/18/21 14:31 Trazodone Hcl 50 Mg Tab PO HS PRN Insomnia Intake and Output 09/18/21 09/19/21 09/19/21 22:59 06:59 14:59 Intake Total 400 975 Balance 400 975 Intake: IV 10 Invasive Line 1 10 Intake, IV Titration 330 875 Amount Diltiazem 125 mg In 30 125 Sodium Chloride 0.9% 100 ml @ 10 MG/HR 10 mls/hr IV .[id number] DAVIN Rx#: [id number] Sodium Chloride 0.9% 1, 300 750 000 ml @ 100 mls/hr IV . Q10H DAVIN Rx#:[id number] Oral 60 100 Other: # Voids 1 4 Weight 117.934 kg 09/18/21 12:07 09/18/21 12:07
[2021-09-19 11:00] LABS: AST 57 U/L (17-59); African American GFR (CKD) >90 (>60 ml/min/1.73 sqM); Alkaline Phosphatase 66 U/L (38-126); Anion Gap 11 mmol/L; Blood Urea Nitrogen 23 mg/dL (9-20); Calcium 8.8 mg/dL (8.4-10.2); Carbon Dioxide 25 mmol/L (22-30); Chloride 101 mmol/L (98-107); Glucose 103 mg/dL (74-99); Magnesium 1.8 mg/dL (1.6-2.3); Non-African American GFR(CKD) >90 (>60 ml/min/1.73 sqM); Potassium 3.3 mmol/L (3.5-5.1); Sodium 137 mmol/L (137-145); Total Bilirubin 1.9 mg/dL (0.2-1.3); Total Protein 7.6 g/dL (6.3-8.2)
[2021-09-19 11:01] LABS: ALT 26 U/L (4-49)
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
[2021-09-19 11:10] LABS: Basophils % (A) 0 %; Eosinophils % (A) 0 %; HGB 18.4 gm/dL (13.0-17.5); Lymphocytes # (A) 1.5 k/uL (1.0-4.8); Lymphocytes % (A) 21 %; MCH 30.7 pg (25.0-35.0); MCHC 33.5 g/dL (31.0-37.0); MCV 91.5 fL (80.0-100.0); Mean Platelet Volume 8.4; Monocytes # (A) 0.5 k/uL (0-1.0); Monocytes % (A) 7 %; Neutrophils # (A) 4.9 k/uL (1.3-7.7); Neutrophils % (A) 70 %; Platelet Count 110 k/uL (150-450); RBC 6.01 m/uL (4.30-5.90); RDW 13.9 % (11.5-15.5)
[2021-09-19] MEDS ORDERED: Potassium Replacement Protocol 1 EACH MISC MISCELLANE PRN (12:17)
--- NOTE | 2021-09-19 12:40 | P.PN ---
Subjective Progress Note Date: 09/19/21 Principal diagnosis: atrial fibrillation Patient is calmer today compared to when he came in. He denied having any pain or focal weakness or numbness. No fevers or chills. Objective - Vital Signs Vital signs: Vital Signs Temp 98.4 F 09/19/21 11:23 Pulse 82 09/19/21 11:23 Resp 18 09/19/21 11:23 BP 130/80 09/19/21 11:23 Pulse Ox 99 09/19/21 11:23 Intake & Output 09/18/21 09/19/21 09/19/21 18:59 06:59 18:59 Intake Total 10 1365 Balance 10 1365 Weight 117.934 kg 117.934 kg 90 kg Intake: IV 10 Invasive Line 1 10 Intake, IV Titration 1205 Amount Diltiazem 125 mg In 155 Sodium Chloride 0.9% 100 ml @ 10 MG/HR 10 mls/hr IV .[id number] DAVIN Rx#: [id number] Sodium Chloride 0.9% 1, 1050 000 ml @ 100 mls/hr IV . Q10H DAVIN Rx#:[id number] Oral 160 Other: # Voids 4 - Exam Constitutional: No acute distress Eyes:Anicteric sclerae, moist conjunctiva, no lid-lag, PERRLA, ENMT: Oropharynx clear, no erythema, exudates Neck: Supple, FROM, no masses, or JVD, No carotid bruits, No thyromegaly Lungs: Clear to auscultation, Clear to percussion, Normal respiratory effort, no accessory muscle use Cardiovascular: normal rate. Irregular. No murmurs, gallops, or rubs, No peripheral edema Abdominal: Soft, Nontender, no guarding, rebound or rigidity, Normoactive bowel sounds, No hepatomegaly, No splenomegaly, No palpable mass Skin: Normal temperature, tone, texture, turgor, no induration, No subcutaneous nodules, No rash, lesions, No ulcers Extremities: No digital cyanosis, No clubbing, Pedal pulses intact and symmetrical, Radial pulses intact and symmetrical, No calf tenderness Psychiatric: Alert and oriented time 2, flat affect, impaired judgement Neuro: moving all extremities - Labs CBC & Chem 7: 09/19/21 10:17 09/19/21 10:17 Labs: Abnormal Lab Results - Last 24 Hours (Table) 09/18/21 09/18/21 09/18/21 Range/Units 12:07 13:16 13:16 RBC (4.30-5.90) m/uL Hgb (13.0-17.5) gm/dL Hct (39.0-53.0) % Plt Count 89 L (150-450) k/uL Lymphocytes # 0.6 L (1.0-4.8) k/uL Potassium (3.5-5.1) mmol/L BUN (9-20) mg/dL Creatinine (0.66-1.25) mg/dL Glucose (74-99) mg/dL Total Bilirubin (0.2-1.3) mg/dL Ur Specific [place] >1.050 H (1.001-1.035) Urine Protein 1+ H (Negative) Urine Mucus Rare H (None) /hpf Urine Methadone Screen Positive A (Negative) Ur Barbiturates Screen (NotDetected) Urine Barbiturates Positive A (Negative) U Benzodiazepines Scrn (NotDetected) Coronavirus (PCR) (Not Detectd) 09/18/21 09/18/21 09/19/21 Range/Units 13:47 16:35 10:17 RBC (4.30-5.90) m/uL Hgb (13.0-17.5) gm/dL Hct (39.0-53.0) % Plt Count (150-450) k/uL Lymphocytes # (1.0-4.8) k/uL Potassium 3.3 L (3.5-5.1) mmol/L BUN 23 H (9-20) mg/dL Creatinine 0.64 L (0.66-1.25) mg/dL Glucose 103 H (74-99) mg/dL Total Bilirubin 1.9 H (0.2-1.3) mg/dL Ur Specific [place] (1.001-1.035) Urine Protein (Negative) Urine Mucus (None) /hpf Urine Methadone Screen Detected H (Negative) Ur Barbiturates Screen Detected H (NotDetected) Urine Barbiturates (Negative) U Benzodiazepines Scrn Detected H (NotDetected) Coronavirus (PCR) Detected A (Not Detectd) 09/19/21 Range/Units 10:17 RBC 6.01 H (4.30-5.90) m/uL Hgb 18.4 H (13.0-17.5) gm/dL Hct 55.0 H (39.0-53.0) % Plt Count 110 L (150-450) k/uL Lymphocytes # (1.0-4.8) k/uL Potassium (3.5-5.1) mmol/L BUN (9-20) mg/dL Creatinine (0.66-1.25) mg/dL Glucose (74-99) mg/dL Total Bilirubin (0.2-1.3) mg/dL Ur Specific [place] (1.001-1.035) Urine Protein (Negative) Urine Mucus (None) /hpf Urine Methadone Screen (Negative) Ur Barbiturates Screen (NotDetected) Urine Barbiturates (Negative) U Benzodiazepines Scrn (NotDetected) Coronavirus (PCR) (Not Detectd) Assessment and Plan Plan: TIA Seen by neurology, no brain MRI needed. Will only do an echo. Starting aspirin 325 mg daily and lipitor. CT head and CT angiogram of the head and neck reviewed, both negative Atrial fibrillation with rapid ventricular response Cardiology consulted Currently on lopressor 75mg TID and digoxin 250mcg daily. Was on Cardizem drip now d/kelly Delusions and hallucinations. Seen by psychiatry Resume his psych medications Halodol prn for agitation HTN Continue losrtan, metoprolol and clonidine.
[2021-09-19] MEDS: POTASSIUM CHLORIDE ER 20 MEQ TAB.ER PO SCH ×2 (12:43→12:44)
[2021-09-19] MEDS: THIAMINE 100 MG TAB PO SCH (12:44)
[2021-09-19 18:25] LABS: Chol/HDL Ratio 2.52 Ratio; LDL Cholesterol,Calculated 56.4 mg/dL (0.0-131.0); VLDL Calculation 18.96 mg/dL (5.00-40.00)
[2021-09-19] MEDS: ATORVASTATIN 20 MG TAB PO SCH (21:34)
[2021-09-20] MEDS: ASPIRIN 325 MG TAB PO SCH (08:08)
[2021-09-20] MEDS: SPIRONOLACTONE 25 MG TAB PO SCH (08:08)
[2021-09-20] MEDS: DIGOXIN 250 MCG TAB PO SCH (08:08)
[2021-09-20] MEDS: METOPROLOL TARTRATE 50 MG TAB PO SCH ×2 (08:08→21:23)
[2021-09-20] MEDS: THIAMINE 100 MG TAB PO SCH (08:09)
[2021-09-20] MEDS: LOSARTAN 25 MG TAB PO SCH (08:09)
[2021-09-20] MEDS: cloNIDine HCL 0.1 MG TAB PO SCH ×2 (08:09→21:23)
[2021-09-20] MEDS: FUROSEMIDE 40 MG TAB PO SCH (08:09)
[2021-09-20] MEDS ORDERED: METOPROLOL TARTRATE 25 MG TAB PO STA (09:56)
[2021-09-20 10:12] LABS: African American GFR (CKD) >90 (>60 ml/min/1.73 sqM); Anion Gap 7 mmol/L; Blood Urea Nitrogen 15 mg/dL (9-20); Calcium 8.5 mg/dL (8.4-10.2); Carbon Dioxide 24 mmol/L (22-30); Chloride 104 mmol/L (98-107); Glucose 108 mg/dL (74-99); Magnesium 1.9 mg/dL (1.6-2.3); Non-African American GFR(CKD) >90 (>60 ml/min/1.73 sqM); Phosphorus 2.4 mg/dL (2.5-4.5); Potassium 2.9 mmol/L (3.5-5.1); Sodium 135 mmol/L (137-145)
[2021-09-20 10:16] LABS: Basophils % (A) 0 %; Eosinophils % (A) 0 %; HCT 49.4 % (39.0-53.0); HGB 16.3 gm/dL (13.0-17.5); Lymphocytes # (A) 1.3 k/uL (1.0-4.8); Lymphocytes % (A) 24 %; MCH 30.5 pg (25.0-35.0); MCHC 33.1 g/dL (31.0-37.0); MCV 92.2 fL (80.0-100.0); Mean Platelet Volume 8.2; Monocytes # (A) 0.4 k/uL (0-1.0); Monocytes % (A) 7 %; Neutrophils # (A) 3.4 k/uL (1.3-7.7); Neutrophils % (A) 66 %; RBC 5.35 m/uL (4.30-5.90); RDW 14.4 % (11.5-15.5); WBC 5.1 k/uL (3.8-10.6)
--- NOTE | 2021-09-20 10:37 | ECHOF ---
Referral Reason:Thrombus MEASUREMENTS -------- HEIGHT: 180.3 cm WEIGHT: 89.8 kg BP: RVIDd: 2.6 cm (< 3.3) IVSd: 1.6 cm (0.6 - 1.1) LVIDd: 4.8 cm (3.9 - 5.3) LVPWd: 1.6 cm (0.6 - 1.1) IVSs: 2.1 cm LVIDs: 2.8 cm LVPWs: 2.2 cm RAP: 5.00 mmHg RVSP: 17.61 mmHg FINDINGS -------- Limited study due to covid 19 exposure. The left ventricular size is normal. There is moderate concentric left ventricular hypertrophy. O verall left ventricular systolic function is normal with, an EF between 55 - 60 %. There is no pericardial effusion. CONCLUSIONS -------- 1. Limited study due to covid 19 exposure. 2. The left ventricular size is normal. 3. There is moderate concentric left ventricular hypertrophy. 4. Overall left ventricular systolic function is normal with, an EF between 55 - 60 %. 5. There is no pericardial effusion. STUMMEL SELECTOR: Cherelle Pryor RDCS
[2021-09-20] MEDS: APIXABAN 5 MG TAB PO SCH ×2 (13:37→21:23)
[2021-09-20 14:05] LABS: Anisocytosis (M) Present; Platelet Count 81 k/uL (150-450); Poikilocytosis (M) Present
--- NOTE | 2021-09-20 14:18 | P.PN ---
Subjective HISTORY OF PRESENT ILLNESS This is a 50-year-old male with past medical history of hypertension, polysubstance abuse, history of atrial fibrillation. [facility]. Patient was having episodes of confusion and facial droop. On admission patient denied symptoms of confusion and facial droop. He did not know why he is at the hospital. Patient just states don't remember to questions, poor historian .EKG revealed atrial fibrillation with a heart rate of 87. lunchroom monitor is atrial fibrillation running in the 70s-100s with episodes of NSVT. Patient seen and examined at bedside, denies confusion and facial droop. He denies any chest pain, shortness of breath, palpitations. Echocardiogram revealed EF 5560 percent, no snuff can wall motion abnormalities. No pericardial effusion. PHYSICAL EXAMINATION Gen: This is a 50-year-old male patient, resting in bed and appears to be comfortable and in no acute distress. VS: Afebrile, heart rate 73, blood pressure 182/93, pulse ox 98% on room air Full physical examination deferred due to Covid 19 isolation ASSESSMENT Atrial fibrillation, mild RVR, currently rate controlled Possible new onset of paroxysmal atrial fibrillation. However patient may have history of A. fib and cardiomyopathy based on medications. Episodes of confusion and facial droop Thrombocytopenia Hypertension Benzodiazepine substance abuse History alcohol use and cocaine use Covid-19 Infection PLAN We will start Eliquis 5mg BID, per case management patient will need prior auth for medication Discontinue Digoxin Increase metoprolol tartrate to 150mg BID for rate control Neurology following Further recommendations to follow based upon clinical course Nurse practitioner note has been reviewed, I agree with documented findings and plan of care. Patient was seen and examined. Objective - Vital Signs Vital signs: Vital Signs Temp 98.3 F 09/20/21 12:00 Pulse 73 09/20/21 12:00 Resp 16 09/20/21 12:00 BP 182/93 09/20/21 12:00 Pulse Ox 98 09/20/21 12:00 Intake & Output 09/19/21 09/20/21 09/20/21 18:59 06:59 18:59 Intake Total 500 236 Balance 500 236 Weight 90 kg Intake: Oral 500 236 Other: # Voids 2 4 2 - Labs CBC & Chem 7: 09/20/21 09:02 09/20/21 09:02 Labs: Abnormal Lab Results - Last 24 Hours (Table) 09/20/21 09/20/21 Range/Units 09:02 09:02 Plt Count 81 L (150-450) k/uL Sodium 135 L (137-145) mmol/L Potassium 2.9 L (3.5-5.1) mmol/L Creatinine 0.59 L (0.66-1.25) mg/dL Glucose 108 H (74-99) mg/dL Phosphorus 2.4 L (2.5-4.5) mg/dL
--- NOTE | 2021-09-20 14:21 | P.PN ---
Progress Note - Text Progress Note Date: 09/20/21 Interval History: Patient was seen today for psychiatric follow-up. Patient is only mildly conf used today. He was fairly pleasant and cooperative with story writer. He was alert and oriented 3. He knew the current president is. He was fairly vague about why he came to the hospital and claims that he was at [facility] since September 05. He states that he completed his course at [facility] and does not know where to go now upon discharge. He states that he is not having any depression today and reports mild anxiety "since I was little". He states that he sleeps "on and off". He claims that he has a fair appetite. He appears to have fairly appropriate insight and judgment. He is not endorsing any delusions or paranoia today. At this time patient denies any suicidal or homical ideations, intent or plan. Patient denies any auditory, visual hallucinations. Patient denies any side effects from the medications and has been compliant with meds. Mental Status Exam: General Appearance: Patient appears to be laying in bed stated age is alert, directable, and cooperative. Behavior: Patient is calmly laying in bed without any agitated behavior. Mildly confused at times. Speech: Patient's speech is fluent and nonpressured. [place] Mood/Affect: Mood is improving mildly, affect is congruent and constricted. Suicidality/Homicidality: Patient denies having any suicidal or homicidal ideation intent or plan. Perceptions: Patient denies any visual hallucinations and denies any auditory hallucinations Though content/process: There is no evidence of any delusional thought content and thought process is linear and goal-directed. More future oriented. Memory and concentration: AOX3, grossly intact for the purposes of this session Judgment and insight: Improving mildly Assessment Delirium, unknown etiology Benzodiazepine abuse Opioid abuse Plan: -At this time patient DOES NOT meet criteria for inpatient psychiatric admission. -Delirium precautions recommended with patient including - avoiding use of narcotics and DIGITAL ASSOCIATE sedatives, limit anticholinergic medications when possible, frequent re-orientation, minimize use of restraints, open window shades during the day and close them at night -Would recommend the following medication changes/additions: Starting BuSpar 10 mg 3 times a day when necessary for anxiety. Continue with trazodone 50 mg daily at bedtime when necessary for insomnia. Patient will likely not require standing dose of antipsychotic at this time and continue to monitor. -speeder worker to provide patient with outpatient mental health/psychiatry resources for appropriate follow up upon discharge -Hvac Designer spoke with patient about substance abuse and the harmful effects on medical and mental health, patient verbally understood and agreed. -speeder worker to provide patient substance use treatment resources including AA/NA meetings in the community. -Communicated plan to patient's nurse and hospitalist -Psychiatry will sign off at this time -Please contact with any questions.
--- NOTE | 2021-09-20 17:02 | P.PN ---
Subjective Progress Note Date: 09/20/21 Principal diagnosis: Atrial fibrillation Patient was examined about serotonin accompanying any new symptomatology. Blood pressure was slightly elevated the morning. Case discussed with RN and psychiatrist. Anticipating placement in the next 24 hours most likely. Patient has been started on anticoagulation as per cardiology team. Objective - Vital Signs Vital signs: Vital Signs Temp 98.1 F 09/20/21 16:00 Pulse 71 09/20/21 16:00 Resp 16 09/20/21 16:00 BP 166/90 09/20/21 16:00 Pulse Ox 98 09/20/21 16:00 Intake & Output 09/19/21 09/20/21 09/20/21 18:59 06:59 18:59 Intake Total 500 236 Balance 500 236 Weight 90 kg Intake: Oral 500 236 Other: # Voids 2 4 2 - Exam Constitutional: No acute distress, conversant, pleasant Eyes:Anicteric sclerae, moist conjunctiva, no lid-lag, PERRLA, ENMT: Oropharynx clear, no erythema, exudates Neck: Supple, FROM, no masses, or JVD, No carotid bruits, No thyromegaly Lungs: Normal respiratory effort, no accessory muscle use Cardiovascular: Heart regular in rate , No murmurs, gallops, or rubs, No peripheral edema Abdominal: Soft, Nontender, no guarding, rebound or rigidity Skin: Normal temperature, tone, texture, turgor, no induration, No subcutaneous nodules, No rash, lesions, No ulcers - Labs CBC & Chem 7: 09/20/21 09:02 09/20/21 09:02 Labs: Abnormal Lab Results - Last 24 Hours (Table) 09/20/21 09/20/21 Range/Units 09:02 09:02 Plt Count 81 L (150-450) k/uL Sodium 135 L (137-145) mmol/L Potassium 2.9 L (3.5-5.1) mmol/L Creatinine 0.59 L (0.66-1.25) mg/dL Glucose 108 H (74-99) mg/dL Phosphorus 2.4 L (2.5-4.5) mg/dL Assessment and Plan Plan: Assessment: #1 TIA #2 atrial fibrillation with RVR #3 delusions/hallucinations #4 essential hypertension Plan: -Aspiration/fall precaution -Spoke with psychiatry team recommending to use Haldol on as-needed basis. Patient is cleared to be discharged from their perspective. -Patient has been started on a course by cardiology team, digoxin has been discontinued -Patient elevated by neurology. Okay to be Discharge from their perspective. -DVT prophylaxis on a eliquis -Disposition disposition discharged next 24 hours to subacute rehab.
[2021-09-20] MEDS: busPIRone HCl 10 MG TAB PO PRN (21:23)
[2021-09-20] MEDS: ATORVASTATIN 20 MG TAB PO SCH (21:23)
--- NOTE | 2021-09-20 22:45 | P.PN ---
Subjective Progress Note Date: 09/20/21 Patient was seen initially by Dr. Darrian Lopez. Please refer to his note for details. Patient is a 50-year-old male with history of chronic alcoholism, also on benzodiazepines, methadone, transferred from [facility] for facial weakness. Patient has transient facial weakness. Patient does have history of atrial fibrillation for the last 2 months. He is on digoxin. There was some concern about possibility of TIA. Patient currently on aspirin. Patient not on anticoagulation. Patient also has thrombocytopenia which was felt to be related to alcoholism. Patient offers no complaints. Patient was seen by psychiatrist, and was felt to have delirium. Some of the work-up in the hospital consisted of: Initial Vital sign: BP 189/128, HR 78, Temp 98.4F oral, RR 18 and pulse oxygen 99% at room air [place]letes is 89K otherwise cbc with diff is unremarkable. Na 136, Glucose 147, AST 68. Otherwise rest of chemist proteins is unremarkable. Toxicology screen is positive for methadone and Barbiturates and on second he was positive for benzo on repeat (patient received Lorazepam in our facility). Urine alcohol is negative. Coronavirus PCR is detected. CT head is reported as no acute intracranial hemorrhage or midline shift. I personally reviewed the CT of the head there is no acute or subacute ischemia and there is no parenchymal hemorrhage. CTA of head and neck is reported as negative. EKG is reported as Atrial fibrillation with premature ventricular or aberrantly conducted complexes. Prolonged QT. Per the ED team patient symptoms resolved and they felt TIA. No IV tpa. Objective - Vital Signs Vital signs: Vital Signs Temp 98.3 F 09/20/21 12:00 Pulse 73 09/20/21 12:00 Resp 16 09/20/21 12:00 BP 182/93 09/20/21 12:00 Pulse Ox 98 09/20/21 12:00 Intake & Output 09/19/21 09/20/21 09/20/21 18:59 06:59 18:59 Intake Total 500 118 Balance 500 118 Weight 90 kg Intake: Oral 500 118 Other: # Voids 2 4 2 - Exam GENERAL: The patient is lying in bed and is not in acute distress. LUNG: Clear to auscultation bilaterally no wheezing noted throughout. Not labored breathing. ABDOMEN/GI: Bowel sounds present in all 4 quadrants. No tenderness to palpation throughout. NEUROLOGICAL: Higher mental function: Patient is alert and awake. Speech and language functions are intact. No aphasia or dysarthria. Patient not cooperating. He started using foul language, "F- word". Cranial nerves: The pupils are round, equal and reactive to light and accommodation. Visual hill are full to confrontation throughout. Extraocular movement is intact no nystagmus is noted. Facial sensation is normal to touch throughout. The facial strength is normal throughout. Hearing is normal bilaterally to hand rub. Tongue is midline and moved [id number] without any difficulty. Motor: Gait is deferred. The strength is 5 over 5 throughout. Normal tone and bulk. Cerebellum: Patient did not cooperate with rest of the testing. - Labs CBC & Chem 7: 09/20/21 09:02 09/20/21 09:02 Labs: Abnormal Lab Results - Last 24 Hours (Table) 09/20/21 Range/Units 09:02 Sodium 135 L (137-145) mmol/L Potassium 2.9 L (3.5-5.1) mmol/L Creatinine 0.59 L (0.66-1.25) mg/dL Glucose 108 H (74-99) mg/dL Phosphorus 2.4 L (2.5-4.5) mg/dL Assessment and Plan Assessment: Probable Transient Ischemic Attack (with questionable reported Transient facial droop but) especially with Atrial fibrillation Delirium likely due to benzo withdrawl. Hx of chronic alcohol use and last drink couple weeks back can cause delerium. 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 We'll defer possible use of anticoagulation to the cardiology team. Continue Lipitor 20 mg daily at bedtime for secondary stroke prophylaxis Lipid panel with cholesterol 125, LDL 56, HDL 49 and triglycerides 94. Lipids are well controlled. TSH 2.10 2-D echo was limited study due to Covid 19 exposure. Left-ventricular size is normal. Moderate concentric LVH. EF is between 55-60%. No pericardial effusion. Hemoglobin A1c 4.5 Telemetry monitoring showing atrial flutter, fibrillation with heart rate in 80s to 90s. Cardiology on board. Patient on thiamine 100 mg daily. Psychiatry team is consulted for delusion by the primary team. Discussed with Dr. Goyes, felt is delirium. We'll defer the rest of medical management to the primary team Addendum: Patient seen by cardiology, and started on Eliquis 5 mg twice a day. Discontinue aspirin. Neurologically clear.
[2021-09-21] MEDS ORDERED: ASPIRIN 81 MG PO SCH (09:00)
[2021-09-21] MEDS: FUROSEMIDE 40 MG TAB PO SCH (09:17)
[2021-09-21] MEDS: THIAMINE 100 MG TAB PO SCH (09:17)
[2021-09-21] MEDS: METOPROLOL TARTRATE 50 MG TAB PO SCH ×2 (09:17→20:36)
[2021-09-21] MEDS: SPIRONOLACTONE 25 MG TAB PO SCH (09:17)
[2021-09-21] MEDS: LOSARTAN 25 MG TAB PO SCH (09:17)
[2021-09-21] MEDS: cloNIDine HCL 0.1 MG TAB PO SCH ×2 (09:17→20:35)
[2021-09-21] MEDS: APIXABAN 5 MG TAB PO SCH ×2 (09:17→20:35)
--- NOTE | 2021-09-21 13:03 | P.PN ---
Subjective HISTORY OF PRESENT ILLNESS This is a 50-year-old male with past medical history of hypertension, polysubstance abuse, history of atrial fibrillation. [facility]. Patient was having episodes of confusion and facial droop. On admission patient denied symptoms of confusion and facial droop. He did not know why he is at the hospital. Patient just states don't remember to questions, poor historian. EKG revealed atrial fibrillation with a heart rate of 87. Patient seen and examined at bedside, Telemetry reviewed, is atrial fibrillation with controlled ventricular rates. No further episodes of NSVT. Patient denies confusion and facial droop. He denies any chest pain, shortness of breath, palpitations. Echocardiogram revealed EF 5560 percent, no snuff can wall motion abnormalities. No pericardial effusion. PHYSICAL EXAMINATION Gen: This is a 51-year-old male patient, resting in bed and appears to be comfortable and in no acute distress. He is alert and oriented x 3. VS: Afebrile, heart rate 85, blood pressure 163/105, maintaining oxygen satu rations on room air Full physical examination deferred due to Covid 19 isolation ASSESSMENT Atrial fibrillation, mild RVR, currently rate controlled Possible new onset of paroxysmal atrial fibrillation. However patient may have history of A. fib and cardiomyopathy based on medications. Episodes of confusion and facial droop Thrombocytopenia Hypertension Benzodiazepine substance abuse History alcohol use and cocaine use Covid-19 Infection PLAN We will start Eliquis 5mg BID, per case management patient will need prior auth for medication Continue to hold Digoxin Continue metoprolol tartrate to 150mg BID and home cardiac medications. From a cardiology perspective, patient stable to be discharged on current medication regimen. Recommend close follow up outpatient with cardiology. Nurse practitioner note has been reviewed, I agree with documented findings and plan of care. Patient was seen and examined. Objective - Vital Signs Vital signs: Vital Signs Temp 98.4 F 09/21/21 09:15 Pulse 85 09/21/21 09:15 Resp 16 09/21/21 09:15 BP 163/105 09/21/21 09:15 Pulse Ox 98 09/21/21 09:15 Intake & Output 09/20/21 09/21/21 09/21/21 18:59 06:59 18:59 Intake Total 356 237 240 Balance 356 237 240 Intake: Oral 356 237 240 Other: Voiding Method Toilet # Voids 2 1 # Bowel Movements 1 - Labs CBC & Chem 7: 09/20/21 09:02 09/20/21 09:02 Labs: Abnormal Lab Results - Last 24 Hours (Table) 09/20/21 Range/Units 09:02 Plt Count 81 L (150-450) k/uL
--- NOTE | 2021-09-21 14:05 | P.PN ---
Subjective Progress Note Date: 09/21/21 09/21/2021: Patient is laying comfortably in the bed. Wants to go home. Complains of soreness in the arms from poking for blood testing and diabetes. Otherwise no complaints. 09/20/2021: Patient was seen initially by Dr. Darrian Lopez. Please refer to his note for details. Patient is a 50-year-old male with history of chronic alcoholism, also on benzodiazepines, methadone, transferred from [facility] for facial weakness. Patient has transient facial weakness. Patient does have history of atrial fibrillation for the last 2 months. He is on digoxin. There was some concern about possibility of TIA. Patient currently on aspirin. Patient not on anticoagulation. Patient also has thrombocytopenia which was felt to be related to alcoholism. Patient offers no complaints. Patient was seen by psychiatrist, and was felt to have delirium. Some of the work-up in the hospital consisted of: Initial Vital sign: BP 189/128, HR 78, Temp 98.4F oral, RR 18 and pulse oxygen 99% at room air Plateletes is 89K otherwise cbc with diff is unremarkable. Na 136, Glucose 147, AST 68. Otherwise rest of organic chemist is unremarkable. Toxicology screen is positive for methadone and Barbiturates and on second he was positive for benzo on repeat (patient received Lorazepam in our facility). Urine alcohol is negative. Coronavirus PCR is detected. CT head is reported as no acute intracranial hemorrhage or midline shift. I personally reviewed the CT of the head there is no acute or subacute ischemia and there is no parenchymal hemorrhage. CTA of head and neck is reported as negative. EKG is reported as Atrial fibrillation with premature ventricular or aberrantly conducted complexes. Prolonged QT. Per the ED team patient symptoms resolved and they felt TIA. No IV tpa. Objective - Vital Signs Vital signs: Vital Signs Temp 98.4 F 09/21/21 09:15 Pulse 85 09/21/21 09:15 Resp 16 09/21/21 09:15 BP 157/95 09/21/21 12:00 Pulse Ox 98 09/21/21 09:15 Intake & Output 09/20/21 09/21/21 09/21/21 18:59 06:59 18:59 Intake Total 356 237 500 Balance 356 237 500 Intake: Oral 356 237 500 Other: Voiding Method Toilet # Voids 2 1 # Bowel Movements 1 - Exam GENERAL: The patient is lying in bed and is not in acute distress. LUNG: Clear to auscultation bilaterally no wheezing noted throughout. Not labored breathing. ABDOMEN/GI: Bowel sounds present in all 4 quadrants. No tenderness to palpation throughout. NEUROLOGICAL: Higher mental function: Patient is alert and awake. Patient is oriented 3. He knows it is September 2021 and that he is in [facility]. Knows name of the current president. Speech and language functions are intact. No aphasia or dysarthria. Patient was much cooperative today. Cranial nerves: The pupils are round, equal and reactive to light and accommodation. Visual hill are full to confrontation throughout. Extraocular movement is intact no nystagmus is noted. Facial sensation is normal to touch throughout. The facial strength is normal throughout. Hearing is normal jose alfredo aterally to hand rub. Tongue is midline and moved [id number] without any difficulty. Shoulder shrug normal. Motor: Gait is deferred. The strength is 5 over 5 throughout. Normal tone and bulk. Cerebellum: No ataxia for [id number] testing. Sensations equal with no neglect. - Labs CBC & Chem 7: 09/20/21 09:02 09/20/21 09:02 Labs: Abnormal Lab Results - Last 24 Hours (Table) 09/20/21 Range/Units 09:02 Plt Count 81 L (150-450) k/uL Assessment and Plan Assessment: Probable Transient Ischemic Attack (with questionable reported Transient facial droop but) especially with Atrial fibrillation Delirium likely due to benzo withdrawl. Hx of chronic alcohol use and last drink couple weeks back can cause delerium. Reported new onset Atrial fibrillation (but per girlfriend for 6 months) Positive COVID-19 pneumonia Chronic alcohol use Peripheral neuropathy due to alcohol use Thrombocytopenia likely due to alcohol use Chronic Benzo use (Xanax) Plan: Patient seen by cardiology, and started on Eliquis 5 mg twice a day. Await insurance authorization for Eliquis. Cardiology on board. Continue Lipitor 20 mg daily at bedtime for secondary stroke prophylaxis Lipid panel with cholesterol 125, LDL 56, HDL 49 and triglycerides 94. Lipids are well controlled. TSH 2.10 2-D echo was limited study due to Covid 19 exposure. Left-ventricular size is normal. Moderate concentric LVH. EF is between 55-60%. No pericardial effusion. Hemoglobin A1c 4.5 Patient on thiamine 100 mg daily. Neurologically clear.
--- NOTE | 2021-09-21 16:31 | P.PN ---
Subjective Progress Note Date: 09/21/21 Principal diagnosis: Atrial fibrillation Patient was examined and its attendant complaining of any symptoms. At this time patient is okay to discharge unfortunately having a difficult time getting home didn't keep his placement.. Objective - Vital Signs Vital signs: Vital Signs Temp 98.4 F 09/21/21 15:17 Pulse 86 09/21/21 15:17 Resp 16 09/21/21 15:17 BP 135/85 09/21/21 15:17 Pulse Ox 100 09/21/21 15:17 Intake & Output 09/20/21 09/21/21 09/21/21 18:59 06:59 18:59 Intake Total 356 237 500 Balance 356 237 500 Intake: Oral 356 237 500 Other: Voiding Method Toilet # Voids 2 1 # Bowel Movements 1 - Exam Constitutional: No acute distress, conversant, pleasant Eyes:Anicteric sclerae, moist conjunctiva, no lid-lag, PERRLA, ENMT: Oropharynx clear, no erythema, exudates Neck: Supple, FROM, no masses, or JVD, No carotid bruits, No thyromegaly Lungs: Normal respiratory effort, no accessory muscle use Cardiovascular: Heart regular in rate , No murmurs, gallops, or rubs, No peripheral edema Abdominal: Soft, Nontender, no guarding, rebound or rigidity Skin: Normal temperature, tone, texture, turgor, no induration, No subcutaneous nodules, No rash, lesions, No ulcers - Labs CBC & Chem 7: 09/20/21 09:02 09/20/21 09:02 Assessment and Plan Plan: Assessment: #1 TIA #2 atrial fibrillation with RVR #3 delusions/hallucinations #4 essential hypertension Plan: -Aspiration/fall precaution -Spoke with psychiatry team recommending to use Haldol on as-needed basis. Patient is cleared to be discharged from their perspective. -Patient has been started on a course by cardiology team, digoxin has been discontinued -Patient elevated by neurology. Okay to be Discharge from their perspective. -DVT prophylaxis on a eliquis -Disposition patient misplaced his keys discharge tomorrow morning.
[2021-09-21] MEDS: ATORVASTATIN 20 MG TAB PO SCH (20:35)
[2021-09-21] MEDS: busPIRone HCl 10 MG TAB PO PRN (20:38)
[2021-09-21 23:19] VITALS: RESP 18
[2021-09-22] MEDS: METOPROLOL TARTRATE 50 MG TAB PO SCH (09:19)
[2021-09-22] MEDS: APIXABAN 5 MG TAB PO SCH (09:19)
[2021-09-22] MEDS: SPIRONOLACTONE 25 MG TAB PO SCH (09:19)
[2021-09-22] MEDS: LOSARTAN 25 MG TAB PO SCH (09:19)
[2021-09-22] MEDS: cloNIDine HCL 0.1 MG TAB PO SCH (09:20)
[2021-09-22] MEDS: FUROSEMIDE 40 MG TAB PO SCH (09:20)
[2021-09-22] MEDS: THIAMINE 100 MG TAB PO SCH (09:20)
[2021-09-22 09:56] LABS: Basophils % (A) 1 %; Eosinophils # (A) 0.1 k/uL (0-0.7); Eosinophils % (A) 1 %; HCT 45.9 % (39.0-53.0); HGB 15.7 gm/dL (13.0-17.5); Lymphocytes # (A) 1.4 k/uL (1.0-4.8); Lymphocytes % (A) 30 %; MCHC 34.3 g/dL (31.0-37.0); MCV 90.5 fL (80.0-100.0); Mean Platelet Volume 9.1; Monocytes # (A) 0.4 k/uL (0-1.0); Monocytes % (A) 8 %; Neutrophils # (A) 2.7 k/uL (1.3-7.7); Neutrophils % (A) 57 %; RBC 5.07 m/uL (4.30-5.90); RDW 13.7 % (11.5-15.5); WBC 4.8 k/uL (3.8-10.6)
[2021-09-22 09:59] LABS: Platelet Count 78 k/uL (150-450)
[2021-09-22 10:06] LABS: African American GFR (CKD) >90 (>60 ml/min/1.73 sqM); Anion Gap 8 mmol/L; Blood Urea Nitrogen 13 mg/dL (9-20); Calcium 8.8 mg/dL (8.4-10.2); Carbon Dioxide 25 mmol/L (22-30); Chloride 105 mmol/L (98-107); Glucose 123 mg/dL (74-99); Non-African American GFR(CKD) >90 (>60 ml/min/1.73 sqM); Sodium 138 mmol/L (137-145)
[2021-09-22 10:30] VITALS: BP 141/94; PULSE 68; TEMP 98.7
--- NOTE | 2021-09-22 14:04 | P.DS ---
Providers Date of admission: 09/20/21 08:53 Expected date of discharge: 09/22/21 Attending physician: Ziyad Garcias MD Consults: 09/18/21 13:27 Consult Physician Urgent Consulting Provider: Israel Ford Consult Reason/Comments: new onset a fib Do you want consulting provider notified?: Yes Consult Physician Urgent Consulting Provider: Darrian Lopez Consult Reason/Comments: tia Do you want consulting provider notified?: Yes 09/18/21 14:38 Consult Physician Routine Consulting Provider: Poli Valle Consult Reason/Comments: delusions Do you want consulting provider notified?: Yes Primary care physician: Stated None - Discharge Diagnosis(es) (1) Alcohol abuse Current Visit: Yes Status: Chronic (2) Atrial fibrillation with RVR Current Visit: Yes Status: Chronic (3) Transient cerebral ischemia Current Visit: Yes Status: Acute (4) Drug abuse and dependence Current Visit: No Status: Chronic Hospital Course: History of present illness per H&P: 50-year-old male presenting to the emergency department from [facility] with concerns for episode of confusion and facial droop. Patient states he woke up this morning and was confused. According to [facility] staff he had some facial drooping. He is still confused and agitated at the time of my evaluation. Earlier he stated that he was feeling normal and had no complaints. However when I saw him he was having some hallucinations and delusions, was agitated. Did not cooperate with the history or the exam. Vital signs in the emergency department revealed hypertension with blood pressure 185/115, tachycardia with heart rate of 120 to 130. Rest of the vitals were okay. Chest x-ray showed cardiomegaly. EKG showed atrial fibrillation with rapid ventricular response. Head CT scan and CT angiogram of the head and neck were both unremarkable. Hospital course: Atrial fibrillation, mild RVR, currently rate controlled -Cardiology increased her metoprolol 150 daily -Cardiology initiated initiated Eliquis 5 mg po bid. -Cardiology discontinued digoxin -Follow up with cardiology as an outpatient #Possible transient ischemic attack (with question reported transient facial droop) Symptoms resolved Patient was started on Eliquis 5 mg twice daily Patient was started on Lipitor 20 mg daily for secondary stroke prophylaxis. LDL 56, A1c 4.5 Neurology input appreciated #Chronic thrombocytopenia -Most likely secondary to chronic alcohol abuse #Chronic alcohol abuse #Polysubstance abuse including benzodiazepine methadone and alcohol -Patient was counseled regarding substance abuse #Hypokalemia -Replaced #Covid-19 Infection Physical examination on discharge General: non toxic, no distress, appears at stated age Derm: warm, dry Head: atraumatic, normocephalic, symmetric Eyes: EOMI, no lid lag, anicteric sclera Mouth: no lip lesion, mucus membranes moist Cardiovascular: S1S2 reg, no murmur, positive posterior tibial pulse bilateral, Lungs: CTA bilateral, no rhonchi, no rales , no accessory muscle use Abdominal: soft, nontender to palpation, no guarding, no appreciable organomegaly Ext: no gross muscle atrophy, no edema, no contractures Neuro: CN II-XI grossly intact, no focal neuro deficits Psych: Alert, oriented, appropriate affect Patient Condition at Discharge: Fair Plan - Discharge Summary Discharge Rx Participant: Yes New Discharge Prescriptions: New Apixaban [Eliquis] 5 mg PO BID 30 Days #60 tab Metoprolol Tartrate [Lopressor] 150 mg PO BID 30 Days #60 tab Atorvastatin [Lipitor] 20 mg PO HS 30 Days #30 tab Continue ondansetron HCL [Zofran] 8 mg PO Q6H PRN PRN Reason: Nausea And Vomiting Hyoscyamine Sulfate [Levsin] 0.125 mg PO QID PRN PRN Reason: Gi Upset Chlorpheniramine Maleate [Chlor-Trimeton] 4 mg PO Q4H PRN PRN Reason: Allergy Symptoms Therabasic M 1 tab PO DAILY Calc/Mag/Zinc/Janny D 1 tab PO TID PRN PRN Reason: CRAMPS Furosemide [Lasix] 40 mg PO DAILY Acetaminophen [Tylenol 8 Hour] 650 mg PO Q4H PRN MDD 3 TAB/24 HR PRN Reason: Fever And/ Or Pain traZODone HCL [Desyrel] 50 - 150 mg PO HS PRN PRN Reason: Insomnia Thiamine HCl [Vitamin B-1] 100 mg PO DAILY Mag Hydrox/Aluminum Hyd/Simeth [Mylanta Maximum Strength Liq] 30 ml PO Q4H PRN PRN Reason: Gi Upset Loperamide HCl [Imodium A-D] 4 mg PO QID PRN MDD 8 TAB/24 HRS PRN Reason: Diarrhea Ibuprofen [Motrin Ib] 600 mg PO Q6H PRN PRN Reason: Pain Spironolactone 100 mg PO DAILY Losartan Potassium [Cozaar] 25 mg PO DAILY cloNIDine HCL 0.1 mg PO BID Folic Acid 0.4 mg PO DAILY Discontinued Digoxin 250 mcg PO DAILY Metoprolol Tartrate [Lopressor] 75 mg PO TID Discharge Medication List Acetaminophen [Tylenol 8 Hour] 650 mg PO Q4H PRN MDD 3 TAB/24 HR 09/18/21 [History] Calc/Mag/Zinc/Janny D 1 tab PO TID PRN 09/18/21 [History] Chlorpheniramine Maleate [Chlor-Trimeton] 4 mg PO Q4H PRN 09/18/21 [History] Folic Acid 0.4 mg PO DAILY 09/18/21 [History] Furosemide [Lasix] 40 mg PO DAILY 09/18/21 [History] Hyoscyamine Sulfate [Levsin] 0.125 mg PO QID PRN 09/18/21 [History] Ibuprofen [Motrin Ib] 600 mg PO Q6H PRN 09/18/21 [History] Loperamide HCl [Imodium A-D] 4 mg PO QID PRN MDD 8 TAB/24 HRS 09/18/21 [History] Losartan Potassium [Cozaar] 25 mg PO DAILY 09/18/21 [History] Mag Hydrox/Aluminum Hyd/Simeth [Mylanta Maximum Strength Liq] 30 ml PO Q4H PRN 09/18/21 [History] Spironolactone 100 mg PO DAILY 09/18/21 [History] Therabasic M 1 tab PO DAILY 09/18/21 [History] Thiamine HCl [Vitamin B-1] 100 mg PO DAILY 09/18/21 [History] cloNIDine HCL 0.1 mg PO BID 09/18/21 [History] ondansetron HCL [Zofran] 8 mg PO Q6H PRN 09/18/21 [History] traZODone HCL [Desyrel] 50 - 150 mg PO HS PRN 09/18/21 [History] Apixaban [Eliquis] 5 mg PO BID 30 Days #60 tab 09/20/21 [Rx] Atorvastatin [Lipitor] 20 mg PO HS 30 Days #30 tab 09/22/21 [Rx] Metoprolol Tartrate [Lopressor] 150 mg PO BID 30 Days #60 tab 09/22/21 [Rx] Follow up Appointment(s)/Referral(s): Mehrdad Rashid DO [STAFF PHYSICIAN] - 10/05/21 1:15 pm None,Stated [Primary Care Provider] - 1-2 days Patient Instructions/Handouts: Benzodiazepine Abuse (ED), Alcohol Intoxication (ED), Abuse of Alcohol (DC), Acute Delirium (DC), Alcohol Withdrawal (DC), At- Risk Alcohol Use (DC), A-fib (Atrial Fibrillation) (ED) Activity/Diet/Wound Care/Special Instructions: When patient is d/c he will need to call [facility] [employer] to obtain his belongings @ [phone]. Discharge/Stand Alone Forms: AA Meetings [facility], Who Do I Call?, Community Resources, Outpatient Counseling, Personal Telecommunications Manager Discharge Disposition: HOME SELF-CARE
== END 2021-09-22 10:55 | disposition home or self-care (01) | DRG 308 ==
LOC: EC 11:45 → 3SCARD 13:27 → OBSVTOIN 09-20 08:53
PROVIDERS: ADMIT Internal Medicine; ATTEND Internal Medicine
DX: I48.0 Paroxysmal atrial fibrillation (principal); U07.1 COVID-19; J12.82 Pneumonia due to coronavirus disease 2019; G45.9 Transient cerebral ischemic attack, unspecified; F05 Delirium due to known physiological condition; F13.139 Sedative, hypnotic or anxiolytic abuse with withdrawal, unspecified; F22 Delusional disorders; I42.9 Cardiomyopathy, unspecified; I47.2 Ventricular tachycardia; R29.810 Facial weakness; F10.20 Alcohol dependence, uncomplicated; F11.10 Opioid abuse, uncomplicated; F13.10 Sedative, hypnotic or anxiolytic abuse, uncomplicated; D69.59 Other secondary thrombocytopenia; E11.9 Type 2 diabetes mellitus without complications; E87.6 Hypokalemia; I10 Essential (primary) hypertension; F14.10 Cocaine abuse, uncomplicated; G62.1 Alcoholic polyneuropathy; Z79.01 Long term (current) use of anticoagulants; Z79.82 Long term (current) use of aspirin; Z79.899 Other long term (current) drug therapy; Z71.41 Alcohol abuse counseling and surveillance of alcoholic; Z71.51 Drug abuse counseling and surveillance of drug abuser
CPT/HCPCS: 36415; 70450; 70496; 70498; 71046; 80048; 80053; 80061; 80306; 81001; 82075; 83036; 83735; 83880; 84100; 84132; 84443; 84484; 85025; 85610; 85730; 87635; 93005; 93308; 99285

== ENCOUNTER 2021-09-22 14:59 | Emergency (ER) | payer OTHER ==
[2021-09-22] MEDS ORDERED: SODIUM CHLORIDE 0.9% 500 ML 500 ML IV STA (16:10)
[2021-09-22] MEDS ORDERED: ONDANSETRON 4 MG/2 ML VIAL IVP STA (16:16)
[2021-09-22] MEDS ORDERED: FAMOTIDINE 20 MG/2 ML VIAL IV STA (16:16)
[2021-09-22] MEDS ORDERED: MORPHINE SULFATE 4 MG/ML SYRINGE IV STA (16:16)
[2021-09-22 16:38] LABS: Basophils % (A) 0 %; Eosinophils # (A) 0.1 k/uL (0-0.7); Eosinophils % (A) 2 %; Lymphocytes # (A) 1.6 k/uL (1.0-4.8); Lymphocytes % (A) 30 %; MCH 32.4 pg (25.0-35.0); MCHC 36.3 g/dL (31.0-37.0); MCV 89.2 fL (80.0-100.0); Mean Platelet Volume 9.4; Monocytes # (A) 0.4 k/uL (0-1.0); Monocytes % (A) 7 %; Neutrophils # (A) 3.2 k/uL (1.3-7.7); Neutrophils % (A) 58 %; Platelet Count 89 k/uL (150-450); RBC 4.93 m/uL (4.30-5.90); RDW 14.2 % (11.5-15.5); WBC 5.4 k/uL (3.8-10.6)
--- NOTE | 2021-09-22 16:39 | ED ---
Abdominal Pain HPI - General Chief Complaint: Abdominal Pain Stated Complaint: abd pain, weakness Time Seen by Provider: 09/22/21 16:03 Source: patient, RN notes reviewed Mode of arrival: wheelchair Limitations: no limitations - History of Present Illness Initial Comments: This is a pleasant 51-year-old male with a history of atrial fibrillation, hypertension, hyperlipidemia. Patient presents to the emergency department today stating he is getting recurrent sharp abdominal pains to his epigastric area which has been present since last week. at this patient was just seen here and discharged this morning. Patient was initially seen medically but then was seen in the mental health unit. Patient has new prescriptions for L Arias, Lopressor, Lipitor. Previous dosage of Lopressor and digoxin were held. Patient was seen for polysubstance abuse including alcohol and methadone.. Patient states he had laboratory work and an ultrasound done there. Patient states that his medications were adjusted. However he states that the pain a ctually got worse after he was discharged. Patient also complaining of lightheadedness. He denies any chest pain. No shortness of breath. No fever or chills. No symptoms of COVID-19. Noted the patient's being seen during global COVID-19 pandemic. No headache, no fever or chills, no changes in vision or hearing, no sore throat or difficulty with speech, no neck pain, no chest pain or shortness of breath, no nausea or vomiting, no changes in urination or bowel movements, no numbness or tingling, no extremity pain, no skin rashes or lesions. - Related Data Home Medications Medication Instructions Recorded Confirmed Acetaminophen [Tylenol 8 Hour] 650 mg PO Q4H PRN MDD 3 TAB/24 HR 09/18/21 09/22/21 Calc/Mag/Zinc/Janny D 1 tab PO TID PRN 09/18/21 09/22/21 Chlorpheniramine Maleate 4 mg PO Q4H PRN 09/18/21 09/22/21 [Chlor-Trimeton] Folic Acid 0.4 mg PO DAILY 09/18/21 09/22/21 Furosemide [Lasix] 40 mg PO DAILY 09/18/21 09/22/21 Hyoscyamine Sulfate [Levsin] 0.125 mg PO QID PRN 09/18/21 09/22/21 Ibuprofen [Motrin Ib] 600 mg PO Q6H PRN 09/18/21 09/22/21 Loperamide HCl [Imodium A-D] 4 mg PO QID PRN MDD 8 TAB/24 HRS 09/18/21 09/22/21 Losartan Potassium [Cozaar] 25 mg PO DAILY 09/18/21 09/22/21 Mag Hydrox/Aluminum Hyd/Simeth 30 ml PO Q4H PRN 09/18/21 09/22/21 [Mylanta Maximum Strength Liq] Spironolactone 100 mg PO DAILY 09/18/21 09/22/21 Therabasic M 1 tab PO DAILY 09/18/21 09/22/21 Thiamine HCl [Vitamin B-1] 100 mg PO DAILY 09/18/21 09/22/21 cloNIDine HCL 0.1 mg PO BID 09/18/21 09/22/21 ondansetron HCL [Zofran] 8 mg PO Q6H PRN 09/18/21 09/22/21 traZODone HCL [Desyrel] 50 - 150 mg PO HS PRN 09/18/21 09/22/21 Previous Rx's Medication Instructions Recorded Apixaban [Eliquis] 5 mg PO BID 30 Days #60 tab 09/20/21 Atorvastatin [Lipitor] 20 mg PO HS 30 Days #30 tab 09/22/21 Metoprolol Tartrate [Lopressor] 150 mg PO BID 30 Days #60 tab 09/22/21 Pantoprazole [Protonix] 40 mg PO DAILY 30 Days #30 tab 09/22/21 Potassium Chloride ER [K-Dur 20] 20 meq PO DAILY #5 tab 09/22/21 Sucralfate [Carafate] 1 gm PO TID 10 Days #200 ml 09/22/21 Allergies Allergy/AdvReac Type Severity Reaction Status Date / Time No Known Allergies Allergy Verified 09/22/21 17:07 Review of Systems ROS Statement: Those systems with pertinent positive or pertinent negative responses have been documented in the HPI. ROS Other: All systems not noted in ROS Statement are negative. Past Medical History Past Medical History: No Reported History Additional Past Medical History / Comment(s): Patient denies any pain issues. History of Any Multi-Drug Resistant Organisms: None Reported Past Surgical History: Orthopedic Surgery Additional Past Surgical History / Comment(s): finger repair Past Anesthesia/Blood Transfusion Reactions: No Reported Reaction Additional Past Anesthesia/Blood Transfusion Reaction / Comment(s): Patient denies. Past Psychological History: No Psychological Hx Reported Smoking Status: Unknown if ever smoked Past Alcohol Use History: None Reported Past Drug Use History: Cocaine, Opiates, Prescription Drug Abuse General Exam - General Exam Comments Initial Comments: Patient does not appear to be ill or toxic. Adequate peripheral perfusion. No evidence dehydration. Cranial nerves II through XII grossly intact. Limitations: no limitations General appearance: alert, in no apparent distress Head exam: Present: atraumatic, normocephalic, normal inspection Eye exam: Present: normal appearance, PERRL, EOMI. Absent: scleral icterus, conjunctival injection, periorbital swelling ENT exam: Present: normal exam, mucous membranes moist Neck exam: Present: normal inspection. Absent: tenderness, meningismus, lymphadenopathy Respiratory exam: Present: normal lung sounds bilaterally. Absent: respiratory distress, wheezes, rales, rhonchi, stridor Cardiovascular Exam: Present: regular rate, normal rhythm, normal heart sounds. Absent: systolic murmur, diastolic murmur, rubs, gallop, clicks GI/Abdominal exam: Present: soft, tenderness, guarding, normal bowel sounds, other (Patient has generalized tenderness to palpation with voluntary guarding. No definitive rebound or percussion tenderness.). Absent: distended, rebound, rigid Extremities exam: Present: normal inspection, full ROM, normal capillary refill. Absent: tenderness, pedal edema, joint swelling, calf tenderness Back exam: Present: normal inspection Neurological exam: Present: alert, oriented X3, CN II-XII intact Psychiatric exam: Present: normal affect, normal mood Skin exam: Present: warm, dry, intact, normal color. Absent: rash Course Vital Signs 09/22/21 09/22/21 09/22/21 15:06 17:12 19:00 Temperature 97.5 F L Pulse Rate 74 76 87 Respiratory 18 16 18 Rate Blood Pressure 148/95 148/103 153/100 O2 Sat by Pulse 99 95 95 Oximetry - Reevaluation(s) Reevaluation #1: 09/22/21 18:18 Patient reevaluated stressing contraband bed. Awaiting CT results. Hemodynamically stable. Case was discussed in detail with ED attending physician. Reevaluation #2: 09/22/21 19:[address] findings consistent with alcoholic cirrhosis. Minimal free fluid. Medical Decision Making - Medical Decision Making Patient discharged this morning from the mental health unit after being seen here medically and diagnosed with polysubstance abuse including alcohol and methadone.. Differential diagnosis includes peptic ulcer disease. Perforated peptic ulcer, pancreatitis, gallbladder disease, other intra- abdominal/infectious etiology. This is unlikely be cardiopulmonary as he has no shortness of breath or chest pain. Plan for reevaluation. Patient qualifies her monoclonal antibody. The case was discussed in detail with ED attending physician. Presentation, findings, treatment plan discussed in detail. Patient was told to return to the ER for any signs or symptoms worsen. Told to return immediately if any other problems arise. All questions answered. Treatment plan discussed. Patient in agreement - Lab Data Result diagrams: 09/22/21 16:26 09/22/21 16:26 Lab Results 09/22/21 09/22/21 09/22/21 Range/Units 16:26 16:26 16:26 WBC 5.4 (3.8-10.6) k/uL RBC 4.93 (4.30-5.90) m/uL Hgb 16.0 (13.0-17.5) gm/dL Hct 44.0 (39.0-53.0) % MCV 89.2 (80.0-100.0) fL MCH 32.4 (25.0-35.0) pg MCHC 36.3 (31.0-37.0) g/dL RDW 14.2 (11.5-15.5) % Plt Count 89 L (150-450) k/uL MPV 9.4 Neutrophils % 58 % Lymphocytes % 30 % Monocytes % 7 % Eosinophils % 2 % Basophils % 0 % Neutrophils # 3.2 (1.3-7.7) k/uL Lymphocytes # 1.6 (1.0-4.8) k/uL Monocytes # 0.4 (0-1.0) k/uL Eosinophils # 0.1 (0-0.7) k/uL Basophils # 0.0 (0-0.2) k/uL PT 14.5 H (9.0-12.0) sec INR 1.4 H (<1.2) APTT 30.2 H (22.0-30.0) sec Sodium 139 (137-145) mmol/L Potassium 3.3 L (3.5-5.1) mmol/L Chloride 105 (98-107) mmol/L Carbon Dioxide 24 (22-30) mmol/L Anion Gap 10 mmol/L BUN 14 (9-20) mg/dL Creatinine 0.57 L (0.66-1.25) mg/dL Est GFR (CKD-EPI)AfAm >90 (>60 ml/min/1.73 sqM) Est GFR (CKD-EPI)NonAf >90 (>60 ml/min/1.73 sqM) Glucose 76 (74-99) mg/dL Plasma Lactic Acid Clem (0.7-2.0) mmol/L Calcium 9.0 (8.4-10.2) mg/dL Total Bilirubin 1.9 H (0.2-1.3) mg/dL AST 50 (17-59) U/L ALT 34 (4-49) U/L Alkaline Phosphatase 57 (38-126) U/L Troponin I (0.000-0.034) ng/mL Total Protein 7.2 (6.3-8.2) g/dL Albumin 3.8 (3.5-5.0) g/dL Lipase 403 H (23-300) U/L Urine Color Urine Appearance (Clear) Urine pH (5.0-8.0) Ur Specific [place] (1.001-1.035) Urine Protein (Negative) Urine Glucose (UA) (Negative) Urine Ketones (Negative) Urine Blood (Negative) Urine Nitrite (Negative) Urine Bilirubin (Negative) Urine Urobilinogen (<2.0) mg/dL Ur Leukocyte Esterase (Negative) Urine RBC (0-5) /hpf Urine WBC (0-5) /hpf Ur Squamous Epith Cells (0-4) /hpf Hyaline Casts (0-2) /lpf Urine Mucus (None) /hpf Urine Yeast (Budding) (None) /hpf Coronavirus (PCR) (Not Detectd) 09/22/21 09/22/21 09/22/21 Range/Units 16:26 16:26 16:26 WBC (3.8-10.6) k/uL RBC (4.30-5.90) m/uL Hgb (13.0-17.5) gm/dL Hct (39.0-53.0) % MCV (80.0-100.0) fL MCH (25.0-35.0) pg MCHC (31.0-37.0) g/dL RDW (11.5-15.5) % Plt Count (150-450) k/uL MPV Neutrophils % % Lymphocytes % % Monocytes % % Eosinophils % % Basophils % % Neutrophils # (1.3-7.7) k/uL Lymphocytes # (1.0-4.8) k/uL Monocytes # (0-1.0) k/uL Eosinophils # (0-0.7) k/uL Basophils # (0-0.2) k/uL PT (9.0-12.0) sec INR (<1.2) APTT (22.0-30.0) sec Sodium (137-145) mmol/L Potassium (3.5-5.1) mmol/L Chloride (98-107) mmol/L Carbon Dioxide (22-30) mmol/L Anion Gap mmol/L BUN (9-20) mg/dL Creatinine (0.66-1.25) mg/dL Est GFR (CKD-EPI)AfAm (>60 ml/min/1.73 sqM) Est GFR (CKD-EPI)NonAf (>60 ml/min/1.73 sqM) Glucose (74-99) mg/dL Plasma Lactic Acid Clem 1.5 (0.7-2.0) mmol/L Calcium (8.4-10.2) mg/dL Total Bilirubin (0.2-1.3) mg/dL AST (17-59) U/L ALT (4-49) U/L Alkaline Phosphatase (38-126) U/L Troponin I <0.012 (0.000-0.034) ng/mL Total Protein (6.3-8.2) g/dL Albumin (3.5-5.0) g/dL Lipase (23-300) U/L Urine Color Urine Appearance (Clear) Urine pH (5.0-8.0) Ur Specific [place] (1.001-1.035) Urine Protein (Negative) Urine Glucose (UA) (Negative) Urine Ketones (Negative) Urine Blood (Negative) Urine Nitrite (Negative) Urine Bilirubin (Negative) Urine Urobilinogen (<2.0) mg/dL Ur Leukocyte Esterase (Negative) Urine RBC (0-5) /hpf Urine WBC (0-5) /hpf Ur Squamous Epith Cells (0-4) /hpf Hyaline Casts (0-2) /lpf Urine Mucus (None) /hpf Urine Yeast (Budding) (None) /hpf Coronavirus (PCR) Detected A (Not Detectd) 09/22/21 Range/Units 16:51 WBC (3.8-10.6) k/uL RBC (4.30-5.90) m/uL Hgb (13.0-17.5) gm/dL Hct (39.0-53.0) % MCV (80.0-100.0) fL MCH (25.0-35.0) pg MCHC (31.0-37.0) g/dL RDW (11.5-15.5) % Plt Count (150-450) k/uL MPV Neutrophils % % Lymphocytes % % Monocytes % % Eosinophils % % Basophils % % Neutrophils # (1.3-7.7) k/uL Lymphocytes # (1.0-4.8) k/uL Monocytes # (0-1.0) k/uL Eosinophils # (0-0.7) k/uL Basophils # (0-0.2) k/uL PT (9.0-12.0) sec INR (<1.2) APTT (22.0-30.0) sec Sodium (137-145) mmol/L Potassium (3.5-5.1) mmol/L Chloride (98-107) mmol/L Carbon Dioxide (22-30) mmol/L Anion Gap mmol/L BUN (9-20) mg/dL Creatinine (0.66-1.25) mg/dL Est GFR (CKD-EPI)AfAm (>60 ml/min/1.73 sqM) Est GFR (CKD-EPI)NonAf (>60 ml/min/1.73 sqM) Glucose (74-99) mg/dL Plasma Lactic Acid Clem (0.7-2.0) mmol/L Calcium (8.4-10.2) mg/dL Total Bilirubin (0.2-1.3) mg/dL AST (17-59) U/L ALT (4-49) U/L Alkaline Phosphatase (38-126) U/L Troponin I (0.000-0.034) ng/mL Total Protein (6.3-8.2) g/dL Albumin (3.5-5.0) g/dL Lipase (23-300) U/L Urine Color Yellow Urine Appearance Cloudy (Clear) Urine pH 6.5 (5.0-8.0) Ur Specific [place] 1.012 (1.001-1.035) Urine Protein Negative (Negative) Urine Glucose (UA) Negative (Negative) Urine Ketones Negative (Negative) Urine Blood Negative (Negative) Urine Nitrite Negative (Negative) Urine Bilirubin Negative (Negative) Urine Urobilinogen 4.0 (<2.0) mg/dL Ur Leukocyte Esterase Negative (Negative) Urine RBC <1 (0-5) /hpf Urine WBC 1 (0-5) /hpf Ur Squamous Epith Cells <1 (0-4) /hpf Hyaline Casts 3 H (0-2) /lpf Urine Mucus Rare H (None) /hpf Urine Yeast (Budding) Occasional H (None) /hpf Coronavirus (PCR) (Not Detectd) - EKG Data EKG Comments: EKG done at 1655 and reviewed by the ED attending physician reveals atrial fibrillation with a rate of 77, OH interval is not discernible. Remainder of the intervals are normal. No axis. No ST elevation. Patient does have T-wave Abnormality noted in the septal and lateral precordial leads V3 through V6 which are nonspecific and were seen on the previous study. Disposition Clinical Impression: Epigastric abdominal pain, COVID-19, Elevated lipase, Hypokalemia, Alcoholic cirrhosis Disposition: HOME SELF-CARE Condition: Good Instructions (If sedation given, give patient instructions): Abdominal Pain (ED), Coronavirus Disease 2019 (COVID-19), Clear Liquid Diet (ED), Cirrhosis (ED) Additional Instructions: SELF QUARANTINE DISCHARGE: As you are at risk for symptoms due to coronavirus, please stay home and stay away from others as much as possible. Please maintain social distance of 6 feet if possible. You should not return to work until at least 3 days (72 hours) have passed since recovery of symptoms. This defined as resolution of fever without the use of fever reducing medicines and improvement in respiratory symptoms (e.g,, cough, shortness of breath) and, At least 5 days have passed since symptoms first appeared. More information about what to do if you are sick can be found on the CDC website at https://www.cdc.gov/coronaviru s/2019-ncov/st-zuq-mmr-sick/thhcr-wvoz-bgqy.html Expect the symptoms to last for 7-14 days from onset. Use acetaminophen (Tylenol) as needed for discomfort. You can take a maximum of 1 gram every 6 hours for discomfort, with your total dose in 24 hours not exceeding 4 grams. Be sure to maintain hydration. Drink continuous water and/or items high in vitamin C, such as orange juice and/or lemonade. Unless you have high blood pressure, you may consider Sudafed (which is [id number]) for nasal congestion. I would suggest that a short acting Sudafed rather than the 24 hour Sudafed. For a cough you may take Mucinex or Robitussin. Also consider the use of Vicks Vapor Rub or your chest when you sleep. Use a humidifier that is cleaned frequently, in the bedroom at night. For Nausea /Vomiting/Diarrhea associated with your Illness: o Small frequent sips of room temperature liquids. o Diet: [employer] - If you are still experiencing discomfort and/or nausea please slowly advancing your diet using the BRAT Diet = bananas, rice, apples/apple sauce, toast. o With diarrhea avoid any dairy for 48 hours after symptoms resolved. o Continue with activity as tolerated. If your symptoms do get worse and you believe that the upper respiratory infection has developed into something else, such as pneumonia or severe dehydration, please return to the emergency department or follow-up with your primary care. But expect to be symptomatic for the days as indicated above Call your regular doctor tomorrow for follow-up appointment without fail. Your blood pressure was also somewhat elevated here. Discussed this with your regular physician as well. Taking medications as directed. Return to the ER immediately if any symptoms worsen. CLEAR liquid diet for 24 hours. Prescriptions: Sucralfate [Carafate] 1 gm PO TID 10 Days #200 ml Pantoprazole [Protonix] 40 mg PO DAILY 30 Days #30 tab Is patient prescribed a controlled substance at d/c from ED?: No Referrals: None,Stated [Primary Care Provider] - 1-2 days Sadie Gresham MD [STAFF PHYSICIAN] - 1-2 days Time of Disposition: 19:28
--- NOTE | 2021-09-22 16:48 | XR ---
EXAMINATION TYPE: XR chest 1V portable DATE OF EXAM: 09/22/2021 COMPARISON: 09/18/2021 HISTORY: Abdominal pain TECHNIQUE: Single frontal view of the chest is obtained. FINDINGS: There is no focal air space opacity, pleural effusion, or pneumothorax seen. The cardiac silhouette size is within normal limits. The osseous structures are intact. IMPRESSION: No acute process.
[2021-09-22 16:49] LABS: INR 1.4 (<1.2); Partial Thromboplastin Time 30.2 sec (22.0-30.0); Prothrombin Time 14.5 sec (9.0-12.0)
[2021-09-22 16:50] LABS: ALT 34 U/L (4-49); AST 50 U/L (17-59); African American GFR (CKD) >90 (>60 ml/min/1.73 sqM); Albumin 3.8 g/dL (3.5-5.0); Alkaline Phosphatase 57 U/L (38-126); Anion Gap 10 mmol/L; Blood Urea Nitrogen 14 mg/dL (9-20); Carbon Dioxide 24 mmol/L (22-30); Chloride 105 mmol/L (98-107); Glucose 76 mg/dL (74-99); Lipase 403 U/L (23-300); Non-African American GFR(CKD) >90 (>60 ml/min/1.73 sqM); Potassium 3.3 mmol/L (3.5-5.1); Sodium 139 mmol/L (137-145); Total Bilirubin 1.9 mg/dL (0.2-1.3); Total Protein 7.2 g/dL (6.3-8.2)
--- NOTE | 2021-09-22 16:50 | XR ---
EXAM: Abdomen radiograph. HISTORY: Pain. TECHNIQUE: Upright AP view. COMPARISON: None available FINDINGS: There is mild colonic gaseous distention with a nonobstructive pattern. There is small to moderate co lonic stool volume. There are no pathologic calcifications. No acute osseous abnormality seen. No pne umoperitoneum. IMPRESSION: Colonic gaseous distention with a nonobstructive bowel gas pattern.
[2021-09-22 17:02] LABS: Appearance,Urine Cloudy (Clear); Bilirubin,Urine Negative (Negative); Blood,Urine Negative (Negative); Budding Yeast,Urine Occasional /hpf; Color,Urine Yellow; Glucose,Urine (UA) Negative (Negative); Hyaline Casts,Urine 3 /lpf (0-2); Ketones,Urine Negative (Negative); Leukocyte Esterase,Urine Negative (Negative); Mucus,Urine Rare /hpf; Nitrite,Urine Negative (Negative); PH, Urine 6.5 (5.0-8.0); Protein,Urine Negative (Negative); RBC,Urine <1 /hpf (0-5); Specific Gravity,Urine 1.012 (1.001-1.035); Squamous Epithelial Cell,Urine <1 /hpf (0-4); WBC,Urine 1 /hpf (0-5)
[2021-09-22] MEDS ORDERED: POTASSIUM CHLORIDE ER 20 MEQ TAB.ER PO STA (17:17)
--- NOTE | 2021-09-22 18:23 | CT ---
EXAMINATION TYPE: CT abdomen pelvis w con DATE OF EXAM: 09/22/2021 COMPARISON: None available HISTORY: epigastric pain CT DLP: 1133.4 mGycm Automated exposure control for dose reduction was used. TECHNIQUE: Helical acquisition of images was performed from the lung bases through the pelvis. CONTRAST: Performed without Oral Contrast and with IV Contrast, patient injected with 100 mL of Isovue 300. FINDINGS: LUNG BASES: No significant abnormality is appreciated. LIVER/GB: Nodular hepatic contour for consistent with cirrhosis. No focal hepatic lesion seen. Small perihepatic fluid. No acute abnormality of the gallbladder. PANCREAS: No significant abnormality is seen. SPLEEN: Trace perisplenic fluid. Otherwise no acute abnormality is seen. ADRENALS: No significant abnormality is seen. KIDNEYS: No significant abnormality is seen. FREE AIR: No free air is visualized. RETROPERITONEAL ADENOPATHY: None visualized REPRODUCTIVE ORGANS: No significant abnormality is seen URINARY BLADDER: No significant abnormality is seen. PELVIC ADENOPATHY: None visualized. OSSEOUS STRUCTURES: No significant abnormality is seen. BOWEL: No significant abnormality is seen. OTHER: None IMPRESSION: FINDINGS CONSISTENT WITH LIVER CIRRHOSIS WITH SMALL ABDOMINAL FREE FLUID.
[2021-09-22] MEDS ORDERED: PANTOPRAZOLE 40 MG/10 ML VIAL IVP STA (19:04)
[2021-09-22 19:40] VITALS: RESP 20
[2021-09-22] MEDS ORDERED: SODIUM CHLORIDE 0.9% 50 ML IVPB ONE (19:45)
[2021-09-22] MEDS ORDERED: BAMLANIVIMAB (EUA) 700 MG, ETESEVIMAB (EUA) 1,400 MG in SODIUM CHLORIDE 0.9% 100 ML IVPB ONE (20:00)
[2021-09-22 20:13] LABS: Acetaminophen <10.0 ug/mL; Alcohol <10 mg/dL; Salicylate <1.0 mg/dL
[2021-09-22 22:25] VITALS: BP 149/99; PULSE 75; TEMP 98
[2021-09-23 08:58] LABS: Urine Alcohol Negative (Negative); Urine Barbiturate Positive (Negative); Urine Cocaine Negative (Negative); Urine Methadone Negative (Negative); Urine Opiates Negative (Negative); Urine Phencyclidine Negative (Negative)
== END 2021-09-22 22:25 | disposition home or self-care (01) ==
LOC: EC 14:59
DX: U07.1 COVID-19 (principal); R10.13 Epigastric pain; R74.8 Abnormal levels of other serum enzymes; E87.6 Hypokalemia; K70.30 Alcoholic cirrhosis of liver without ascites; Z79.01 Long term (current) use of anticoagulants; Z20.822 Contact with and (suspected) exposure to COVID-19
CPT/HCPCS: 96361; 96374; 96375; 99284; M0245; 36415; 71045; 74019; 74177; 80053; 80143; 80179; 80306; 80320; 81001; 83605; 83690; 84484; 85025; 85610; 85730; 87635